=== PATIENT | female | born 1945 | race Caucasian/White ===

== ENCOUNTER 2018-10-16 18:00 | Inpatient (IN) | payer MEDICARE ==
--- NOTE | 2018-10-16 18:50 | RAD ---
EXAM: Chest one view: HISTORY: Clostridium infection, diarrhea, cough COMPARISON: 04/15/2015 FINDINGS: Heart size: Within normal limits. The lungs: Interstitial and scattered alveolar nodular parenchymal changes throughout the right lung with evidence for right pleural effusion, this is certainly concerning for pneumonia. Stable chronic changes in the left chest. Bilateral shoulder joint arthrosis. IMPRESSION: Patchy interstitial and alveolar parenchymal changes throughout the right lung with right pleural eff usion concerning for right lung pneumonia, new from prior study. Atherosclerosis of the aorta.
[2018-10-16 19:16] LABS: #Basophils 0.1 thou/uL (0.0-0.2); #Eosinphils 0.1 thou/uL (0.0-0.7); #Lymphocytes 0.6 thou/uL (1.20-3.40); #Monocytes 0.6 thou/uL (0.11-0.59); #Neutrophils 14.2 thou/uL (1.40-6.50); %Basophils 0.5 % (0.0-1.0); %Eosinophils 0.4 % (0.0-10.0); %Lymphocytes 3.7 % (21.0-51.0); %Monocytes 3.6 % (0.0-10.0); %Neutrophils 91.8 % (42.0-75.0); Hemoglobin 12.4 g/dL (12.0-16.0); Mean Corpuscular HGB CONC 33.9 g/dL (32.0-36.0); Mean Corpuscular Hemoglobin 30.4 pg (27.0-31.0); Mean Corpuscular Volume 89.8 fL (78.0-98.0); Mean Platelet Volume 7.9 fL (7.4-10.4); Platelet Count 245 thou/uL (130-400); RBC Distribution Width 15.5 % (11.5-14.5); Red Blood Cell (RBC) Count 4.07 mill/uL (4.20-5.40); White Blood Cell (WBC) Count 15.5 thou/uL (4.8-10.8)
[2018-10-16 19:39] LABS: ALT (SGPT) 26 U/L (8-55); AST (SGOT) 41 U/L (5-34); Albumin 2.8 g/dL (3.4-4.8); Alkaline Phosphatase 151 U/L (40-150); Anion Gap 16 mmol/L (10-20); BUN (Urea Nitrogen) 39 mg/dL (9.8-20.1); Bilirubin, Total 1.2 mg/dL (0.2-1.2); CK (CPK) 216 U/L (29-168); Calc. Creatinine Clearance 0 mL/min (70-130); Calcium 8.1 mg/dL (7.8-10.44); Carbon Dioxide 20 mmol/L (23-31); Chloride 90 mmol/L (98-107); Estimated GFR-MDRD 25; Globulin 3.2 g/dL (2.4-3.5); Glucose 79 mg/dL (83-110); Lipase 29 U/L (8-78); Sodium 123 mmol/L (136-145)
[2018-10-16] MEDS ORDERED: cefTRIAXone\\ROCEPHIN 2 GM VIAL ONE (20:03)
[2018-10-16] MEDS ORDERED: Potassium Chloride 20 MEQ TAB ONE (20:54)
[2018-10-16] MEDS ORDERED: Azithromycin 500 MG VIAL ONE (21:18)
[2018-10-16] MEDS ORDERED: Nitroglycerin 0.4 MG TAB (25 Tab Bottle) SL PRN (22:23)
[2018-10-16] MEDS ORDERED: Sodium Chloride 0.65% Nasal 44 ML BOT EA NARE PRN (22:23)
[2018-10-16] MEDS ORDERED: Diabetic Tussin 200 MG/10 ML UDCUP PO PRN (22:23)
[2018-10-16] MEDS ORDERED: Guaifenesin DM 100-10/5 ML UDCUP PO PRN (22:23)
[2018-10-16] MEDS ORDERED: Benzonatate 100 MG CAP PO PRN (22:23)
[2018-10-16] MEDS ORDERED: Senokot S 8.6-50 MG TAB PO PRN ×2 (22:23)
[2018-10-16] MEDS ORDERED: Bisacodyl 5 MG TAB PO PRN ×2 (22:23)
[2018-10-16] MEDS ORDERED: cloNIDine 0.1 MG TAB PO PRN (22:23)
[2018-10-16] MEDS ORDERED: Acetaminophen 325 MG TAB PO PRN (22:23)
[2018-10-16] MEDS ORDERED: Bisacodyl 10 MG SUPP PR PRN (22:23)
[2018-10-16] MEDS ORDERED: hydrALAZINE 20 MG/ML VIAL SLOW IVP PRN (22:23)
[2018-10-16] MEDS ORDERED: Ondansetron PF 4 MG/2 ML Vial IVP PRN (22:23)
[2018-10-16] MEDS ORDERED: Sodium Chloride 0.9% 1,000 ML IV SCH (22:30)
[2018-10-16 23:03] VITALS: BMI 25.9
[2018-10-16] MEDS ORDERED: Lactated Ringer's 1,000 ML IV SCH (23:15)
[2018-10-17] MEDS ORDERED: Mirtazapine 15 MG Soltab PO SCH (00:15)
[2018-10-17] MEDS ORDERED: rOPINIRole HCl 0.5 MG TAB PO SCH (00:15)
[2018-10-17 00:28] LABS: Lactic Acid 2.7 mmol/L (0.5-2.2)
[2018-10-17] MEDS: NS 0.9% w/ 20 MEQ KCL 1,000 ML/1,000 ML BAG IV SCH ×2 (01:00→06:29)
--- NOTE | 2018-10-17 01:06 | HP ---
PRIMARY CARE PHYSICIAN: Dr. Jerry Pruitt. CHIEF COMPLAINT: Abnormal labs. HISTORY OF PRESENTING ILLNESS: Ms. Yu is a very pleasant 73-year-old female with past medical history of extensive breast carcinoma first on the right side and then on the left side, status post surgery as well as history of arthritis, dyslipidemia, depression, hypertension, who presented to the emergency room with above-mentioned complaint. History is mainly obtained by the patient herself and supplemented by her daughter, Ms. Espinosa, present at the bedside. Electronic medical records have been reviewed. According to Ms. Yu, she has been having intractable nausea and vomiting for the last 2 months. She has been seen by primary care physician multiple times and eventually was referred to Gastroenterology, Dr. Gonzalez. Dr. Gonzalez has seen her, and she was found to have H pylori in the stool, which was treated. Despite that, she continued to have symptoms of projectile vomiting multiple times a day along with loose stools and diarrhea. She underwent EGD and colonoscopy recently as an outpatient and reportedly everything was within normal limit including the biopsy. She had a small polyp that was removed. She however continued to have similar symptoms after the endoscopies. Yesterday, she was seen by her oncologist Dr. Herrera for her yearly followup and because of her persistent symptoms, there were concerns of either new carcinoma or recurrent metastasis. A CEA was checked and was found to be elevated. Today, she was seen by primary care physician and her serum chemistries were checked and she was found to have low sodium, low potassium, and elevated creatinine, so she was told to come to the emergency room. Prior to coming to the emergency room while she was getting in the car: She fell and bumped her knee and head and forehead. In the emergency room, her blood work showed leukocytosis with WBCs of 15.5 with 91% neutrophils. Her sodium is low at 123, which was 127 yesterday and 140 in August. Potassium is 3.0, chloride 90, bicarb 20, BUN 39, and creatinine of 1.98 with baseline creatinine being normal. Her creatinine was 2.2 yesterday. Lactic acid was also elevated to 2.3. Her AST is 41. Alkaline phosphatase elevated to 151 with normal total bilirubin and ALT. Creatine kinase is mildly elevated to 216. Her troponin is normal. BNP slightly elevated to 245. Lipase was also normal. Chest x-ray was done in the emergency room, which showed extensive right-sided patchy interstitial and alveolar parenchymal changes suggestive of pneumonia. She was given azithromycin and Rocephin in the emergency room and is now being admitted for hyponatremia, acute renal failure, and right-sided pneumonia. PAST MEDICAL HISTORY: 1. History of breast cancer. She initially had left breast cancer and underwent lumpectomy with axillary lymph node dissection radiation in 2000. 2. Right-sided breast cancer, status post right modified radical mastectomy in 2006 in [place]. 3. Chronic right arm lymphedema. 4. Arthritis. 5. Dyslipidemia. 6. Depression. 7. Hypertension. 8. Osteoporosis. 9. Chronic back and neck pain. PAST SURGICAL HISTORY: 1. Hysterectomy in 1997. 2. Back surgery in 1993 and 2000. 3. Cervical laminectomy in 2010. 4. Breast cancer surgery x2, 2000 and 2006. 5. Left mastectomy and revision of right mastectomy in 2008. 6. Carpal tunnel surgery. 7. Bilateral MediPort placement and removal. 8. Right ankle surgery. 9. Right total hip replacement in 2012. CODE STATUS: Full code as discussed with the patient in presence of her daughter. ALLERGIES: INCLUDE IODINATED CONTRAST AND SULFONAMIDES. HOME MEDICATIONS: 1. Flovent Diskus b.i.d. 2. Azelastine b.i.d. 3. Latanoprost eye drops. 4. Symbicort 80/4.5 b.i.d. two puffs. 5. Remeron 15 mg at bedtime. 6. Albuterol inhaler as needed. 7. Pravastatin 20 mg daily. 8. Fluoxetine 20 mg daily. 9. Celebrex 200 mg daily. 10. Gabapentin 300 mg p.o. b.i.d. 11. Xanax 0.45 mg daily. 12. Ropinirole 0.5 mg at bedtime. 13. Lasix 20 mg p.o. b.i.d. 14. Metoprolol succinate 25 mg daily. SOCIAL HISTORY: No history of drug, tobacco, or alcohol abuse. She is with three children. FAMILY HISTORY: No significant family history of colon cancer. No family history of any significant coronary artery disease either. REVIEW OF SYSTEMS: A 14-point review of system is done. It is negative except for those mentioned in the history and physical. LABORATORY DATA: CBC shows WBCs 15.5 with 91% neutrophils, hemoglobin 12.4, and platelet count 245. Serum chemistry shows sodium 123, potassium 3.0, chloride 90, bicarb 20, BUN 39, creatinine 1.98, blood sugar 79, lactic acid 2.3, AST 41, alkaline phosphatase 151, and creatine kinase 216. Troponin 0.013. BNP 245. Lipase 29. Chest x-ray by my review shows extensive right-sided patchy opacities are consistent with right-sided pneumonia. No obvious mass is seen. EKG by my review shows normal ST-segments and T-waves. Normal sinus rhythm at 96 beats per minute. PHYSICAL EXAMINATION: VITAL SIGNS: Most recent vital signs temperature 98.3, pulse of 89, respirations 16, saturating 97% on 2 L nasal cannula, and blood pressure 94/56. GENERAL: No acute distress. Awake, alert, and oriented x3. Daughter is at bedside. HEENT: Mucous membrane is slightly dry. No oropharyngeal exudate or erythema. Head is normocephalic and atraumatic. Pupils are equal and reactive to light and accommodation. Extraocular movement intact. NECK: Supple without any lymphadenopathy, JVD, or bruit. CHEST: Clear to auscultation without any wheezing, rales, or rhonchi. HEART: Rhythm is regular without any murmurs, rubs, or gallops. ABDOMEN: Soft, nontender, nondistended with positive bowel sounds. EXTREMITIES: Show lymphedema of the right arm extending all the way from the fingers up to her shoulders. Both lower extremities are free of any edema. SKIN: Free of any rashes or bruises. Feel warm and dry to touch. PSYCHIATRIC: Normal affect. NEUROLOGICAL: Nonfocal. IMPRESSION AND PLAN: 1. Hyponatremia. The patient is hypochloremic and hypotensive with acute renal insufficiency. Most likely her symptoms are secondary to extreme dehydration with months of intractable nausea, vomiting, and diarrhea. She will be fluid resuscitated for now with normal saline with potassium. I have discussed the case with on-call gravity prospecting operator helper, Dr. Mendosa, who will be consulting on the patient as well. We will order urinalysis as well as urine and serum osmolality and urine creatinine. Recheck sodium and follow closely. Avoid quick correction. We will correct no more than at the rate of 10 mEq in 24 hours. Other possibility at this time is SIADH secondary to extensive pneumonia or possibly underlying undiagnosed malignancy. We will check TSH as well. 2. Acute renal insufficiency. Once again, most likely prerenal due to extreme dehydration and Lasix. We will hold the Lasix for now and avoid any nephrotoxic medications. Continue to gently rehydrate and monitor renal function on a daily basis. 3. Hypokalemia. We will replace and recheck. 4. Sepsis. The patient is hypotensive with leukocytosis and pneumonia. Likely source is pneumonia. Blood cultures have been obtained, and we will follow the results. Empiric antibiotic, IV fluids, and supportive care started. 5. Right-sided pneumonia, likely community-acquired pneumonia due to gram-positive. We will start her on empiric antibiotics as well as nebulizers scheduled and p.r.n. and supportive care with oxygen, incentive spirometry, Mucinex, Et cetera. We will restart her Flovent and Symbicort in the hospital. The patient has received nebulizers and antibiotics in the emergency room and is already feeling much better. She is in no respiratory distress. 6. Hypotension. This likely secondary to ongoing infection. We will resuscitate her with IV fluids and use antihypertensives with parameters. 7. Intractable nausea, vomiting, and diarrhea. We will send for C diff. The patient reports status post treatment with H pylori. We will also obtain ultrasound of the abdomen for now. The patient will require pretreatment for a CT scan once her renal function improve. She has iodine allergy. If her symptoms do not improve, consider gastroenterology consult. Once again, the possibility of an underlying malignancy is high. I have reviewed her lab done as an outpatient and her CEA was elevated to 49.70 and her LDH was elevated to 419. She is scheduled to get a CT scan as an outpatient in the next few days, but we will hold off until her renal function improves. We will consider oncology consultation if her symptoms do not improve. 8. Elevated BNP. Unclear significance of this. The patient does not appear to be in any congestive heart failure. She does have small amount of edema in her foot and was on Lasix twice a day. I do not see any cardiac workup for her done in the past. We will obtain a transthoracic echocardiogram. No evidence to suggest ACS at this time. Normal cardiac enzymes and normal EKG for same. 9. Lactic acidosis, most likely secondary to pneumonia. Once again, rehydration, IV antibiotic, and supportive care has been instituted. 10. History of breast cancer, status post surgery and radiation. 11. Chronic lymphedema. The patient follows up with lymphedema clinic in the outpatient setting. 12. Deep vein thrombosis and gastrointestinal prophylaxis. We will use heparin in place of Lovenox because of acute renal insufficiency. 13. Code status. Full code discussed with the patient. 14. Fall. We will have OT/PT to evaluate the patient. She will benefit from home health upon discharge. 15. Add p.r.n. medications and symptomatic and supportive care. DISPOSITION: Ms. Yu is currently being admitted to the hospital with multitude of problems including sepsis, pneumonia, hypotension, which is improving as well as with the multiple electrolyte abnormalities as above. ESTIMATED LENGTH OF STAY: At this time is at least 2 to 3 midnights. Further management will depend upon her clinical course. Level of complexity high, level of decision-making high, and level of risk high. TIME SPENT: Total time spent in taking care of this patient including [id number] interaction 45 minutes. Job ID: [id number]
[2018-10-17 05:55] LABS: #Eosinphils 0.1 thou/uL (0.0-0.7); #Lymphocytes 1.1 thou/uL (1.20-3.40); #Monocytes 0.6 thou/uL (0.11-0.59); #Neutrophils 9.1 thou/uL (1.40-6.50); %Eosinophils 1.1 % (0.0-10.0); %Lymphocytes 10.5 % (21.0-51.0); %Monocytes 5.2 % (0.0-10.0); %Neutrophils 83.2 % (42.0-75.0); Hemoglobin 10.2 g/dL (12.0-16.0); Mean Corpuscular HGB CONC 34.1 g/dL (32.0-36.0); Mean Corpuscular Volume 90.9 fL (78.0-98.0); Mean Platelet Volume 7.8 fL (7.4-10.4); Platelet Count 204 thou/uL (130-400); RBC Distribution Width 15.5 % (11.5-14.5); White Blood Cell (WBC) Count 10.9 thou/uL (4.8-10.8)
[2018-10-17 06:07] LABS: Anion Gap 9 mmol/L (10-20); BUN (Urea Nitrogen) 28 mg/dL (9.8-20.1); Calc. Creatinine Clearance 44 mL/min (70-130); Calcium 5.9 mg/dL (7.8-10.44); Carbon Dioxide 17 mmol/L (23-31); Chloride 109 mmol/L (98-107); Estimated GFR-MDRD 46; Glucose 73 mg/dL (83-110); Potassium 2.6 mmol/L (3.5-5.1); Sodium 132 mmol/L (136-145)
[2018-10-17] MEDS ORDERED: Potassium Chloride 20 MEQ TAB PO SCH ×2 (07:00→11:00)
[2018-10-17] MEDS: Mometasone/Formoterol 120 PUFF INHALER INH SCH ×2 (07:14→18:06)
[2018-10-17] MEDS ORDERED: Calcium Chloride 13.6 MEQ in Sodium Chloride 0.9% 100 ML IVPB SCH (07:15)
--- NOTE | 2018-10-17 07:59 | ULT ---
COMPLETE ABDOMEN ULTRASOUND: Date: 10/17/18 INDICATION: Intractable nausea, vomiting, and diarrhea. COMPARISON: Prior right upper quadrant ultrasound dated 04/09/14. FINDINGS: Visualized aorta and IVC are within normal limits. There is a moderate sized right-sided pleural effu therese noted. No focal hepatic lesion is evident. The spleen is normal appearing, measuring 8.4 cm. No abnormality is evident involving the gallbladder. No sonographic Hirsch's sign is reported. Common bile duct measured 3.7 mm. Visualized pancreas is unremarkable appearing. Right kidney measures 9.5 x 3.3 x 3.9 cm. Left kidney measures 10.1 x 4.6 x 4.4 cm. There is mild rig ht and moderate left hydronephrosis. IMPRESSION: 1. Interval development of bilateral hydronephrosis. CT evaluation of the abdomen and pelvis is zhao mmended for additional characterization. This could be performed without contrast initially. 2. Right-sided pleural effusion. 3. No additional acute sonographic abnormality within the abdomen. POS: BH
[2018-10-17 08:32] LABS: Bilirubin Negative (Negative); Blood, Urine Trace (Negative); Clarity CLEAR (Clear); Glucose, Urine (Dipstick) Negative (Negative); Leukocyte Small (Negative); Nitrite Negative (Negative); Protein, Urine (Dipstick) Negative (Neg-Trace); Specific Gravity, Urine 1.007 (1.002-1.036); Urobilinogen 0.2 mg/dL (0.2-1.0); pH, Urine 5.5 (5.0-9.0)
[2018-10-17 08:36] LABS: Bacteria/HPF None Seen HPF (None Seen); Hyaline Casts/LPF 0-3 HYALINE CAST LPF (0-3 Hyaline); Pathc Cast-AUWi Flag 0.13 (0-2.49); Squamous Epithelial 0-3 HPF (0-3); Yeast-AUWi Flag 22.9 (0-25.0)
[2018-10-17 08:52] LABS: Creatinine, Urine 35.57 mg/dL (47-110); Sodium, Urine Less than 20 mmol/L (Not Available)
[2018-10-17] MEDS ORDERED: ALPRAZolam 0.5 MG TAB PO SCH (09:00)
[2018-10-17] MEDS ORDERED: Enoxaparin Sodium 40 MG/0.4 ML SYRINGE SC SCH (09:00)
[2018-10-17] MEDS ORDERED: CeleCOXIB 100 MG CAP PO SCH (09:00)
[2018-10-17] MEDS ORDERED: Magnesium 2 GM/50 ML 2 GM in Premix Bag 1 BAG IVPB SCH (09:15)
[2018-10-17] MEDS: Azelastine 137 MCG/Spray 30 ML NS SCH ×2 (09:30→20:43)
[2018-10-17] MEDS: Famotidine 20 MG TAB PO SCH (09:31)
[2018-10-17] MEDS: guaiFENesin ER 600 MG TAB PO SCH ×2 (09:31→20:46)
[2018-10-17] MEDS: Gabapentin 300 MG CAP PO SCH ×2 (09:31→20:47)
[2018-10-17] MEDS: Fluticasone Propionate Nasal Spray 16 gm Bottle NASAL SCH ×2 (09:31→20:44)
[2018-10-17] MEDS: FLUoxetine HCl 20 MG CAP PO SCH (09:31)
[2018-10-17] MEDS: Heparin 5,000 UNITS/ML VIAL SC SCH ×2 (09:32→20:46)
--- NOTE | 2018-10-17 11:00 | CT ---
EXAM: CT Abdomen Pelvis WO Con PROVIDED CLINICAL HISTORY: Sepsis, or hydronephrosis. History of prior mastectomy and hysterectomy COMPARISON: Abdominal ultrasound 10/17/2018 FINDINGS: Moderate-sized right pleural effusion and atelectasis is present. There are groundglass densities par tially imaged at the right lung base which could be related to infectious process. Correlation for pneumonitis is recommended. Mild atelectasis is present at the left lung base. There is limited evaluation of the parenchymal organs secondary to the lack of intravenous contrast. There is mild pelvocaliectasis on the left. No hydronephrosis is present. There was suggestion of mil d right hydronephrosis on recent ultrasound examination, but no findings to suggest hydronephrosis on the right are seen on this nonenhanced CT exam. Ureters are not well seen due to multiple adjacent unopacified structures, but no definitive calculus is seen along the expected course of either ureter. Lack of intravenous contrast limits sensitivity for evaluation of the parenchymal organs. However, th e liver, spleen, pancreas, and bilateral adrenal glands demonstrate grossly normal nonenhanced CT appearance. There is streak artifact in the pelvis from right total hip prosthesis limiting evaluation urinary bl adder, but the distended urinary bladder has a grossly normal nonenhanced CT appearance. There is evidence of hysterectomy. The stomach is distended with fluid and particulate matter as well as gas. Loops of small bowel appea r normal in caliber. Vascular calcifications are seen in the abdominal aorta and involving the iliac arteries. Postsurgical changes of the lumbar spine are noted related to posterior fusion with intervertebral di sc cages seen in the L3-4 and intervertebral disc space. Multilevel degenerative changes are seen in the spine. Irregularity of the iliac bones are seen bilaterally which may be related to prior bone harvest sites. Small amount of free fluid is seen in the pelvis. There is minimal diffuse mesenteric edema in additi on to mild bilateral perinephric stranding slightly greater on the left which is nonspecific as well. There is indistinctness seen near the aortic bifurcation with mild adjacent stranding. This is overall nonspecific and not well evaluated due to the lack of intravenous contrast. Mildly prominent lymph node in this region cannot be entirely excluded. IMPRESSION: 1. Mild pelvocaliectasis on the left without overt hydronephrosis. No hydronephrosis is seen on the r ight. Ureters are normal in caliber. Each ureter is difficult to visualize due to multiple unopacified structures, but no definitive calculus is is seen along the expected course of either ure ter. 2. Distention of the stomach with fluid and particulate matter which may be related to recent ingesti on of a meal. Clinical correlation is suggested. 3. Moderate-sized right pleural effusion. In addition, there are groundglass densities at the right l vaishnavi base which are incompletely imaged. Infectious process right lung base cannot be entirely excluded. Follow-up evaluation is recommended. 4. Indistinctness in the aortocaval region inferiorly some of which is likely related to artifact fro m adjacent metallic hardware in the spine. There is also mild stranding in this region. Mildly enlarged lymph nodes seen near the aortic bifurcation is a possibility but difficult to further evalu ate. 5. Minimal nonspecific stranding within the mesentery as well as minimal bilateral perinephric strand ing slightly greater on the left which is nonspecific. Tiny amount of free fluid is seen in the pelvis.
--- NOTE | 2018-10-17 13:24 | PRG ---
DATE OF SERVICE: 10/17/2018 CHIEF COMPLAINT: Abnormal labs. Nausea, vomiting, and diarrhea. HISTORY OF PRESENT ILLNESS: A 73-year-old female with past medical history of breast cancer, on remission for 11 years; hypertension; hyperlipidemia; depression; right upper extremity chronic lymphedema, who has been presenting chronic nausea, vomiting, decreased appetite for the past 2 months. She was sent by her primary care physician for electrolyte abnormalities. SUBJECTIVE: The patient was seen and evaluated at bedside. Her daughter is present. She refers being hungry. Per nurse, hypomagnesemia, hypokalemia, hypocalcemia. Improving sodium level. Lactic acid is still abnormal. REVIEW OF SYSTEMS: All systems are reviewed and negative except for the one as mentioned above. PHYSICAL EXAMINATION: VITAL SIGNS: Blood pressure 100/59, pulse 78, respirations 16, oxygen saturation 96% on 2L of oxygen via nasal cannula, and temperature 98.3 Fahrenheit. GENERAL: She appears in no distress. She is awake, alert, oriented x3. HEAD AND NECK: Pupils are reactive to light. Extraocular muscles are intact. Mucous membranes are moist. NECK: Supple. CARDIOVASCULAR: Rhythm and rate are regular. No audible murmurs, rubs, or gallops. PULMONARY: Clear to auscultation bilaterally. No wheezes, rhonchi, or crackles. ABDOMEN: Soft, nontender, and nondistended. Positive bowel sounds. EXTREMITIES: Trace edema of the bilateral ankles. Range of motion is intact. Right upper extremity chronic lymphedema. SKIN: Generalized pallor. No breakdowns. NEUROLOGIC: Cranial nerves 2 through 12 are grossly intact. Deep tendon reflexes are normal reflex. Muscle tone is normal. Muscle strength is 5/5. LABORATORY DATA: Laboratory abnormalities; white blood cell count is 10.9, better from yesterday; hemoglobin is 10.2, hematocrit 30, neutrophils are 83%. Sodium is 132, potassium 2.6, chloride 109, bicarbonate 17, BUN 28, creatinine 1.15, and calcium 5.9. Magnesium 1. C diff negative. Blood cultures negative to date. Imaging study reports are reviewed. ASSESSMENT AND PLAN: 1. Acute hyponatremia: Improving. Continue current IV fluids. 2. Acute hypokalemia: Replaced this morning. Check in the morning. 3. Acute hypocalcemia: Corrected this morning. We will check in the morning. 4. Acute hypomagnesemia: Replaced this morning. We will check in the morning. 5. Acute kidney injury: Prerenal secondary to dehydration. Improving. Continue IV fluids. Nephrology has been consulted. 6. Sepsis secondary to right community-acquired pneumonia: Sepsis resolved. Continue treatment for pneumonia with Rocephin. 7. Right community-acquired pneumonia: Continue treatment as above. 8. Transient hypotension: Resolved. Monitor closely. 9. Acute lactic acidosis: Secondary to sepsis. We will repeat lactic acid in the morning after volume resuscitation. 10. Intractable nausea and vomiting: Resolved. The patient is hungry. Antiemetics p.r.n. 11. Self-limited diarrhea: Suspect osmotic diarrhea. Clostridium difficile negative. Imodium p.r.n. 12. Status post mechanical fall: No significant trauma. PT and OT evaluation and treatment. 13. Nonspecific elevated BNP. 14. Breast cancer, on remission for 10 years. 15. Chronic dyslipidemia. 16. Chronic depression. 17. Chronic essential hypertension. 18. Chronic osteoporosis. CODE STATUS: Full code. CORE MEASURES: Heparin. DISPOSITION: Medical-surgical unit on telemetry. PROGNOSIS: Guarded. CLINICAL STATUS: Guarded. EXPECTED DISCHARGE: To be determined. TOTAL TIME SPENT: 40 minutes. Job ID: [id number]
--- NOTE | 2018-10-17 14:12 | CON ---
DATE OF CONSULTATION: HISTORY OF PRESENT ILLNESS: Ms. Yu is a 73-year-old white female with known history of breast cancer-right, in remission and admitted for an acute kidney injury. There was a concomitant hypokalemia and hyponatremia with this. Review of her history and lab suggested that the hyponatremia may be secondary to hypovolemic hyponatremia. She was empirically volume repleted with normal saline and with improvement of the renal function as well of the serum sodium. We are now following up this patient for an acute kidney injury. She was also advised to be admitted due to abnormal lab-elevated CEA and will have an extensive workup to be done by her etl lead. REVIEW OF SYSTEMS: Positive for cough. Positive for decreased p.o. intake. Positive for nausea. No diarrhea. No constipation. No productive cough. No headache. No diplopia. No sore throat. Denies any fever or chills. No abdominal pain. No melena. No hematochezia. No hematemesis. PAST MEDICAL HISTORY: 1. Bilateral breast cancer. 2. Elevated CEA. 3. Chronic right upper extremity lymphedema. 4. DJD. 5. Dyslipidemia. 6. Depression. 7. Hypertension. 8. Osteoporosis. 9. Chronic back and neck pain. 10. History of hyperlipidemia. 11. History of depression. 12. History of neuropathy. 13. History of COPD. PAST SURGICAL HISTORY: Status post hysterectomy, status post bilateral mastectomy, status post breast biopsies, status post cervical laminectomy, status post back surgery, status post right total hip replacement, status post right ankle surgery, status post MediPort placement, status post carpal tunnel surgery, status post upper and lower GI endoscopies. ALLERGIES: IODINATED CONTRAST AND SULFA. TRAUMA: None. IMMUNIZATION: Up to date. HOSPITALIZATIONS: Please see past medical history. HOME MEDICATIONS: Include; 1. Flovent Diskus b.i.d. 2. Latanoprost eye drops as directed. 3. Symbicort 80/4.5 one puff b.i.d. 4. Remeron 50 mg at bedtime. 5. DuoNeb p.r.n. 6. Pravastatin 20 mg at bedtime. 7. Fluoxetine 20 mg tablet once a day. 8. Celebrex 200 mg daily. 9. Gabapentin 300 mg p.o. b.i.d. 10. Lasix 20 mg p.o. b.i.d. 11. Metoprolol succinate 25 mg once a day. 12. The patient on empiric azithromycin at 250 mg daily. 13. Ceftriaxone 2 g IV daily. SOCIAL HISTORY: The patient is , 3 children. Lives in [place], but originally from [place]. 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 Education, high school. Denies any IV drugs. No smoking. Occasional alcohol. Active lifestyle. No IV drug abuse. FAMILY HISTORY: No family history of ESRD. PHYSICAL EXAMINATION: VITAL SIGNS: Blood pressure 117/66, heart rate 88, respiratory rate 16, temperature 96.2, and pulse ox 94%. GENERAL: The patient is awake, alert, comfortable, not in distress. SKIN: Adequate turgor. HEENT: She has pinkish conjunctivae. Anicteric sclerae. No neck mass. No carotid bruits. No JVD. CHEST: No deformities. LUNGS: Decreased breath sounds, right. Left clear. HEART: Normal sinus rhythm. No murmurs, no gallops, no rubs. ABDOMEN: Globular, soft, nontender. EXTREMITIES: Trace edema lower extremities. Positive for right upper extremity edema. NEUROLOGICAL: Awake and oriented to 3 spheres. Moving all extremities. No tremors. No asterixis. No ataxia. LABORATORY DATA: On October 17, 2018; white count 10.9, hemoglobin 10.2. Sodium 132, potassium 2.6, chloride 109, carbon dioxide 17, BUN 20, creatinine 1.15, calcium is 5.9. Serum osmolality 271, magnesium is 1.0. On October 16, 2018; sodium 123, potassium 3.0, chloride 90, carbon dioxide 20, BUN 39, creatinine 1.98. BNP 245. AST 41, ALT 26, albumin 2.8, TSH 1.4, cortisol 19. On October 15, 2018; uric acid was noted to be elevated. CEA antigen 49.7, elevated. CA 27/29 noted at 99, elevated. The uric acid is elevated at 13.9. Urine sodium is less than 20. Urine creatinine 35. Urinalysis shows rbc 4 to 6, wbc 7 to 10. On October 17, 2018, ultrasound of the abdomen shows right-sided pleural effusion. There is an incidental finding of a mild right and moderate left hydronephrosis, this was commented to be new. ASSESSMENT AND PLAN: 1. Acute kidney injury-consider hemodynamically-mediated renal dysfunction. Creatinine is actually much improved with volume repletion. 2. Left-sided hydronephrosis-we will do a CT scan imaging of the abdomen as per recommendation by Radiology or we can wait until tomorrow to see if the kidney function will further improve and proceed with a CT scan of the kidneys with and without contrast. 3. Hyponatremia, much improved-secondary to hypovolemic hyponatremia, improved with normal saline. 4. Hypokalemia. Continue potassium replacement. 5. Pneumonia based on the chest x-ray. Empiric IV antibiotics. Overall agree with current management. Job ID: [id number]
--- NOTE | 2018-10-17 16:43 | CON ---
DATE OF CONSULTATION: REASON FOR CONSULTATION: Hydronephrosis. PRIMARY CARE PHYSICIAN: Jerry Pruitt DO HISTORY OF PRESENT ILLNESS: Ms. Yu is a pleasant 73-year-old female, G3, P3 , with history of breast carcinoma, status post bilateral mastectomy, chemo-RT. The patient previously underwent surgery by Dr. Tiwari including MediPort. Her history reviewed, she is a good subjective historian. She has had intractable nausea and vomiting for few weeks. Was seen by GI, Dr. Gonzalez, underwent EGD, diagnosed with H pylori, which was treated. She does have previous history of C difficile. Her projectile vomiting has persisted with diarrhea and she was admitted for electrolyte abnormalities including hypokalemia, hypocalcemia, elevated lactic acid, and acute renal insufficiency. She has baseline mixed incontinence urge greater than stress. Denies history of recurrent UTI, gross hematuria, or recurrent urolithiasis. She denies history of gout. She has been hydrated. She has no flank pain, is resting comfortably. She appears to be on a regular diet, is passing gas. PAST MEDICAL HISTORY: Include; 1. History of breast cancer, initial left breast cancer, status post bilateral mastectomy, lymph node dissection in 2006. 2. History of chronic right upper extremity lymphedema. 3. Arthritis. 4. Dyslipidemia. 5. Depression. 6. Hypertension. 7. Osteoporosis. 8. Spinal stenosis. 9. Chronic neck and back pain. PAST SURGICAL HISTORY: 1. Status post hysterectomy in 1997. 2. Back surgery in 1993 and 2000. 3. Cervical laminectomy in 2010. 4. Breast surgery x2 in 2000 and 2006. 5. Left mastectomy. 6. Revision of right mastectomy in 2008. 7. Carpal tunnel surgery. 8. MediPort placement. 9. Right ankle surgery. 10. Right total hip replacement. CODE STATUS: Full. ALLERGIES: SHE IS ALLERGIC TO IODINE CONTRAST, SULFONAMIDES. CURRENT MEDICATIONS: Include; 1. Tylenol. 2. DuoNeb. 3. Xanax. 4. Azelastine. 5. Zithromax. 6. Tessalon. 7. Dulcolax. 8. Tums. 9. Rocephin. 10. Catapres. 11. Pepcid. 12. Prozac. 13. Neurontin. 14. Guaifenesin. 15. Heparin subcu for DVT prophylaxis. 16. Magnesium sulfate. 17. Metoprolol. 18. Remeron. 19. Dulera. 20. Nitrostat. 21. Zofran. 22. K-Dur. 23. She is on IV fluids at 175 mL an hour. 24. Requip. 25. Senokot. 26. Zocor. 27. Celebrex. 28. As she was admitted for acute kidney injury, I did discontinue her Celebrex. SOCIAL HISTORY: Denies tobacco abuse or alcohol. She is with 3 children. Retired, disabled. Ambulates with a rolling walker. FAMILY HISTORY: Positive for colon cancer. REVIEW OF SYSTEMS: Ten-point review of systems as above, otherwise noncontributory. PHYSICAL EXAMINATION: VITAL SIGNS: Her vital signs are stable. She is afebrile at 96, pulse 88, respiratory rate 16, and oxygen saturation 94%. I's and O's are not documented. GENERAL: The patient appears to be in no acute distress. HEENT: Unremarkable. HEART: Regular rate. LUNGS: Clear, somewhat decreased on the right side. ABDOMEN: Soft. No rigidity. No rebound. No distention. EXTREMITIES: Right upper extremity demonstrates chronic lymphedema, bilateral lower extremity pitting edema is appreciated. GENITOURINARY: demonstrates atrophic vaginitis. No significant prolapse. Urethral meatus is visualized without significant issues. PERTINENT LABORATORY AND IMAGING: White count on admission is 16, currently it is 10; hemoglobin 10; platelet 204; 91 segs, currently 83. Potassium today is 2.6 , BUN 28, creatinine 1.1 this morning. She was admitted with a creatinine of 2.2, however, with fluids and observation, it has improved almost near her baseline. Her baseline creatinine is 0.8 to 0.7. Prior history of INR is 4.3 back in 2012. Lactic acid 2.7. Uric acid is elevated at 13.9, calcium is 5.9. Urinalysis on admission, 4 to 6 rbc's, 7 to 10 wbc's, no bacteria. Culture has not been obtained. Blood culture negative. C difficile is negative. CT with and without IV contrast October 17, 2018: Mild pelvic caliectasis of the left kidney without overt hydronephrosis. Component of left extrarenal pelvis. No evidence of right hydronephrosis. Ureters are unremarkable with no evidence of ureteral calculi. Significant distention of the stomach with food. Moderate right pleural effusion. IMPRESSION AND PLAN: 1. Ms. Yu is a 73-year-old female, G3, P3 with history of bilateral breast cancer status post mastectomy. 2. Currently admitted due to right-sided pneumonia, has been treated with Zithromax, currently on Rocephin. 3. Acute renal insufficiency, prerenal due to decreased oral intake and significant nausea, vomiting, and diarrhea for the last few weeks. Recommend observation. Monitor BMP. 4. Elevated uric acid. The patient does not have a prior history of gout. Recommend treatment with allopurinol. 5. I do not recommend that the patient be provided nephrotoxins such as NSAIDs. Celebrex discontinued. NSAIDs could eventually be restarted, if it is okay with Nephrology and , and renal function remains stable. Job ID: [id number] MTDD
[2018-10-17] MEDS: cefTRIAXone\\ROCEPHIN 2 GM in Sodium Chloride 0.9% 100 ML IVPB SCH (20:14)
[2018-10-17] MEDS: Calcium Carbonate 500 MG ChewTAB PO SCH (20:42)
[2018-10-17] MEDS: ALPRAZolam 0.5 MG TAB PO SCH (20:43)
[2018-10-17] MEDS: Latanoprost 0.005% Ophth Soln 2.5 ml Bottle EA EYE SCH (20:44)
[2018-10-17] MEDS: Mirtazapine 15 MG Soltab PO SCH (20:45)
[2018-10-17] MEDS: rOPINIRole HCl 0.5 MG TAB PO SCH (20:46)
[2018-10-17] MEDS: Simvastatin 5 MG TAB PO SCH (20:46)
[2018-10-17] MEDS: Azithromycin 500 MG in Sodium Chloride 0.9% 250 ML 250 ML IVPB SCH (21:29)
[2018-10-18] MEDS: NS 0.9% w/ 20 MEQ KCL 1,000 ML/1,000 ML BAG IV SCH (02:33)
[2018-10-18 05:53] LABS: #Basophils 0.1 thou/uL (0.0-0.2); #Eosinphils 0.2 thou/uL (0.0-0.7); #Monocytes 0.5 thou/uL (0.11-0.59); #Neutrophils 7.7 thou/uL (1.40-6.50); %Basophils 0.6 % (0.0-1.0); %Lymphocytes 10.7 % (21.0-51.0); %Monocytes 5.1 % (0.0-10.0); %Neutrophils 81.6 % (42.0-75.0); Hemoglobin 10.6 g/dL (12.0-16.0); Mean Corpuscular HGB CONC 32.9 g/dL (32.0-36.0); Mean Corpuscular Hemoglobin 30.1 pg (27.0-31.0); Mean Corpuscular Volume 91.4 fL (78.0-98.0); Mean Platelet Volume 8.2 fL (7.4-10.4); Platelet Count 213 thou/uL (130-400); RBC Distribution Width 16.1 % (11.5-14.5); Red Blood Cell (RBC) Count 3.54 mill/uL (4.20-5.40); White Blood Cell (WBC) Count 9.5 thou/uL (4.8-10.8)
[2018-10-18 06:07] LABS: Lactic Acid 1.3 mmol/L (0.5-2.2)
[2018-10-18 06:18] LABS: Anion Gap 13 mmol/L (10-20); BUN (Urea Nitrogen) 26 mg/dL (9.8-20.1); Calc. Creatinine Clearance 47 mL/min (70-130); Calcium 8.2 mg/dL (7.8-10.44); Carbon Dioxide 16 mmol/L (23-31); Chloride 107 mmol/L (98-107); Estimated GFR-MDRD 48; Glucose 77 mg/dL (83-110); Magnesium 1.8 mg/dL (1.6-2.6); Potassium 5.1 mmol/L (3.5-5.1); Sodium 131 mmol/L (136-145)
[2018-10-18] MEDS: Mometasone/Formoterol 120 PUFF INHALER INH SCH (06:19)
[2018-10-18] MEDS: Fluticasone Propionate Nasal Spray 16 gm Bottle NASAL SCH ×2 (09:34→21:44)
[2018-10-18] MEDS: guaiFENesin ER 600 MG TAB PO SCH ×2 (09:35→21:42)
[2018-10-18] MEDS: Allopurinol 100 MG TAB PO SCH (09:35)
[2018-10-18] MEDS: Calcium Carbonate 500 MG ChewTAB PO SCH ×2 (09:35→21:42)
[2018-10-18] MEDS: Famotidine 20 MG TAB PO SCH (09:36)
[2018-10-18] MEDS: FLUoxetine HCl 20 MG CAP PO SCH (09:36)
[2018-10-18] MEDS: Gabapentin 300 MG CAP PO SCH ×2 (09:36→21:42)
[2018-10-18] MEDS: Heparin 5,000 UNITS/ML VIAL SC SCH ×2 (09:36→21:43)
[2018-10-18] MEDS: Azelastine 137 MCG/Spray 30 ML NS SCH ×2 (09:37→21:44)
--- NOTE | 2018-10-18 10:59 | PRG ---
DATE OF SERVICE: 10/18/2018 SUBJECTIVE: Ms. Yu is a 73-year-old white female, who was seen for her acute kidney injury that was hemodynamically-mediated renal dysfunction. She was given volume repletion with improvement of the renal function. Urine chemistry was suggestive of prerenal azotemia. In addition, due to initial renal ultrasound, there was hydronephrosis. However, a CAT scan of the abdomen failed to showed this hydronephrosis. No other complaints today. She feels tired. She denies any chest pain or shortness of breath. OBJECTIVE: VITAL SIGNS: Blood pressure 117/68, heart rate 97, respiratory rate 18, temperature 97.9, and pulse ox 97%. GENERAL: Awake, alert, comfortable, not in distress. SKIN: Adequate turgor. HEENT: Pinkish conjunctivae, anicteric sclerae. NECK: No neck mass. No carotid bruits. No JVD. CHEST: No deformities. LUNGS: Decreased breath sounds, right, left, clear breath sounds. HEART: Normal sinus rhythm. No murmurs, gallops, or rubs. ABDOMEN: Globular, soft, nontender. No masses. EXTREMITIES: No edema. No deformities of lower extremities. Positive for right upper extremity edema. MEDICATIONS: October 18, 2018, was reviewed. LABORATORY STUDIES: Laboratories of October 18, 2018, sodium 131, potassium 5.1, chloride 107, carbon dioxide 16, BUN 26, creatinine 1.11, glucose 77, calcium 8.2, magnesium 1.8. White count 9.5, hemoglobin 10.6. Cardiac echo, normal EF. Positive for diastolic dysfunction. CT scan of the abdomen and pelvis showed no hydronephrosis. There is extension of stoma with fluid particulate matter. In addition, there is a moderate sized right pleural effusion. There is a mild pelvocaliectasis on the left without overt hydronephrosis. ASSESSMENT AND PLAN: 1. Acute kidney injury-hemodynamically mediated renal dysfunction. Renal function is actually much improved. Continue gentle volume repletion. Continue to hold off any BRIGETTE inhibitors or ARB with this patient. 2. Hyponatremia, much improved. Initial serum sodium was noted at 123, it is now currently at 131. Continue current management. 3. Overall agree with current management. Job ID: [id number]
--- NOTE | 2018-10-18 12:40 | PRG ---
DATE OF SERVICE: 10/18/2018 SUBJECTIVE: The patient without complaints, doing well. Denies chest pain, shortness of breath, dysuria, or gross hematuria. OBJECTIVE: VITAL SIGNS: Stable. She is afebrile. ABDOMEN: Soft, nontender, and nondistended. Urine output 1410. LABORATORY DATA: Labs today; white count 9, creatinine 1.1. Urine culture negative. Creatinine is near her baseline. IMPRESSION AND PLAN: 1. Ms. Yu is a 73-year-old female with history of breast cancer, admitted for right-sided community-acquired pneumonia on Zithromax and Rocephin. 2. Acute renal insufficiency, prerenal due to history of decreased oral intake for a few months, significant diarrhea, nausea, chronic Celebrex use. Her renal function is stable. Renal ultrasound initially demonstrated bilateral hydronephrosis, mild right, moderate left. CT which I reviewed with the radiologist demonstrates no significant hydronephrosis of concern, component of extrarenal pelvis with minimal caliectasis. Recommend observation. I do recommend patient abstain from nephrotoxins such as Celebrex for few more weeks, unless it is approved by Nephrology. If she demonstrates consistent ability to hydrate, slowly reintroducing NSAIDs, would be okay if her renal function returns to baseline. will sign off. Call if any questions or concerns. No surgical intervention warranted. Can follow up with me in 4-6 weeks with recheck BMP. She may call my office after discharge to arrange elective follow-up appointment. Job ID: [id number] MTDD
--- NOTE | 2018-10-18 15:10 | PRG ---
DATE OF SERVICE: 10/18/2018 CHIEF COMPLAINT: Abnormal labs. Nausea, vomiting, and diarrhea. HISTORY OF PRESENT ILLNESS: This is a 73-year-old female with past medical history of breast cancer, on remission for 11 years, hypertension, hyperlipidemia, depression, right upper extremity chronic lymphedema, who came to the hospital referred from her primary care physician for abnormal labs after complaints of intermittent nausea, vomiting, and diarrhea. SUBJECTIVE: The patient seen and evaluated at bedside. No family member present. She refers feeling much better. She is requesting probiotics. Per nurse, no acute events overnight. REVIEW OF SYSTEMS: All systems are reviewed and negative except for the ones mentioned above. PHYSICAL EXAMINATION: VITAL SIGNS: Blood pressure 117/68, pulse is 99, respiration 18, O2 saturation 97% on 2 L of oxygen via nasal cannula, and temperature 97.4 Farenheit. GENERAL: She is in no distress. She is awake, alert, and oriented x3. HEAD AND NECK: Pupils are equal and reactive to light. Extraocular muscles are intact. Mucous membranes are moist. Neck is supple without bruits. CARDIOVASCULAR: Rhythm and rate regular. No audible murmurs, rubs, or gallops. PULMONARY: Clear to auscultation bilaterally. No wheezes, rhonchi, or crackles. ABDOMEN: Soft, nontender, nondistended. Positive bowel sounds. EXTREMITIES: Trace edema, bilateral ankles. Right upper extremity chronic lymphedema. Range of motion is intact. SKIN: Generalized pallor. No breakdowns. NEUROLOGIC: Cranial nerves 2 through 12 are grossly intact. Deep tendon reflexes are normoreflexic. LABORATORY DATA: Laboratory abnormalities; sodium 131, creatinine 1.11. Glucose is normal. White blood cell count in the normal range now. Hemoglobin 10.6, hematocrit 32.3. Microbiology with no growth. MEDICATIONS: Current medications are reviewed. ASSESSMENT AND PLAN: 1. Acute hyponatremia: Unchanged from yesterday. We will continue to monitor. Continue IV fluids. 2. Acute hypokalemia: Resolved. 3. Acute hypocalcemia: Resolved. 4. Acute hypomagnesemia: Resolved. 5. Acute kidney injury: Prerenal secondary to dehydration. Improving. 6. Sepsis secondary to right community-acquired pneumonia: Sepsis resolved. Continue current antibiotics. Monitor cultures. 7. Right community-acquired pneumonia: Continue current antibiotics. 8. Transient hypotension: Resolved. 9. Acute lactic acidosis: Resolved. 10. Intractable nausea and vomiting: Resolved. Advance as tolerated. 11. Osmotic diarrhea: Negative C. diff. Resolved. 12. Status post mechanical fall: Continue PT, OT evaluation and treatment. 13. Nonspecific elevated BNP. 14. Breast cancer on remission for 10 years. 15. Chronic dyslipidemia. 16. Current depression. 17. Chronic essential hypertension. 18. Chronic osteoporosis. 19. Code status: Full code. 20. Core measure: Heparin. 21. Disposition: Medical-Surgical Unit on telemetry. 22. Prognosis: Guarded. 23. Clinical status: Guarded. 24. Expected discharge: To be determined. Possibly in the next 48 to 72 hours. TOTAL TIME SPENT: 32 minutes. Job ID: [id number]
[2018-10-18] MEDS: Azithromycin 500 MG in Sodium Chloride 0.9% 250 ML 250 ML IVPB SCH (21:30)
[2018-10-18] MEDS: Mirtazapine 15 MG Soltab PO SCH (21:42)
[2018-10-18] MEDS: Simvastatin 5 MG TAB PO SCH (21:42)
[2018-10-18] MEDS: cefTRIAXone\\ROCEPHIN 2 GM in Sodium Chloride 0.9% 100 ML IVPB SCH (21:43)
[2018-10-18] MEDS: ALPRAZolam 0.5 MG TAB PO SCH (21:43)
[2018-10-18] MEDS: rOPINIRole HCl 0.5 MG TAB PO SCH (21:48)
[2018-10-18] MEDS: Latanoprost 0.005% Ophth Soln 2.5 ml Bottle EA EYE SCH (21:48)
[2018-10-19 05:20] LABS: #Eosinphils 0.2 thou/uL (0.0-0.7); #Lymphocytes 1.4 thou/uL (1.20-3.40); #Monocytes 0.6 thou/uL (0.11-0.59); #Neutrophils 5.9 thou/uL (1.40-6.50); %Basophils 0.5 % (0.0-1.0); %Eosinophils 2.3 % (0.0-10.0); %Lymphocytes 16.8 % (21.0-51.0); %Monocytes 7.7 % (0.0-10.0); %Neutrophils 72.7 % (42.0-75.0); Hemoglobin 10.6 g/dL (12.0-16.0); Mean Corpuscular HGB CONC 33.7 g/dL (32.0-36.0); Mean Corpuscular Hemoglobin 31.2 pg (27.0-31.0); Mean Corpuscular Volume 92.6 fL (78.0-98.0); Mean Platelet Volume 7.5 fL (7.4-10.4); Platelet Count 237 thou/uL (130-400); RBC Distribution Width 16.2 % (11.5-14.5); Red Blood Cell (RBC) Count 3.38 mill/uL (4.20-5.40); White Blood Cell (WBC) Count 8.1 thou/uL (4.8-10.8)
[2018-10-19 05:33] LABS: Anion Gap 13 mmol/L (10-20); BUN (Urea Nitrogen) 19 mg/dL (9.8-20.1); Calc. Creatinine Clearance 60 mL/min (70-130); Calcium 8.5 mg/dL (7.8-10.44); Carbon Dioxide 17 mmol/L (23-31); Chloride 107 mmol/L (98-107); Estimated GFR-MDRD 62; Glucose 71 mg/dL (83-110); Potassium 5.1 mmol/L (3.5-5.1); Sodium 132 mmol/L (136-145)
[2018-10-19] MEDS: Mometasone/Formoterol 120 PUFF INHALER INH SCH ×2 (06:29→18:50)
[2018-10-19] MEDS: Fluticasone Propionate Nasal Spray 16 gm Bottle NASAL SCH ×2 (09:56→20:26)
[2018-10-19] MEDS: Lactinex Tablet PO SCH (09:57)
[2018-10-19] MEDS: Calcium Carbonate 500 MG ChewTAB PO SCH ×2 (09:57→20:06)
[2018-10-19] MEDS: Allopurinol 100 MG TAB PO SCH (09:57)
[2018-10-19] MEDS: Azelastine 137 MCG/Spray 30 ML NS SCH ×2 (09:57→20:27)
[2018-10-19] MEDS: guaiFENesin ER 600 MG TAB PO SCH ×2 (09:58→20:07)
[2018-10-19] MEDS: FLUoxetine HCl 20 MG CAP PO SCH (09:58)
[2018-10-19] MEDS: Gabapentin 300 MG CAP PO SCH ×2 (09:58→20:07)
[2018-10-19] MEDS: Famotidine 20 MG TAB PO SCH (09:58)
[2018-10-19] MEDS: Heparin 5,000 UNITS/ML VIAL SC SCH ×2 (09:58→20:07)
--- NOTE | 2018-10-19 12:48 | PRG ---
DATE OF SERVICE: 10/19/2018 SUBJECTIVE: Ms. Yu is a 73-year-old white female, who was initially seen for an acute kidney injury, that was prerenal, as well as for hyponatremia. The hyponatremia was felt secondary to hypovolemic hyponatremia. She has received volume repletion with improvement of the serum sodium and renal dysfunction. No new complaints today except for the persistent cough. She is also being treated with antibiotics. No complaints of chest pain or shortness of breath. OBJECTIVE: VITAL SIGNS: Blood pressure 123/71, heart rate 99, respiratory rate 18, temperature 99.2, and pulse ox 95%. GENERAL: Awake, alert, comfortable, not in overt distress. SKIN: Adequate turgor. HEENT: She has pinkish conjunctivae. Anicteric sclerae. NECK: No neck mass. No carotid bruits. No JVD. CHEST: No deformities. LUNGS: Decreased breath sounds. HEART: Normal sinus rhythm. No murmur, gallops, or rubs. ABDOMEN: Globular, soft, nontender. No masses. EXTREMITIES: Lower - no edema. Right upper extremity positive for edema. NEUROLOGIC: Moving all extremities. No tremors. No asterixis. No ataxia. MEDICATIONS: Medications of 10/19/2018 was reviewed. LABORATORY DATA: Laboratories of 10/19/2018: White count 8.1 and hemoglobin 10.6. Sodium 132, potassium 5.1, chloride 107, carbon dioxide 17, BUN 19, creatinine 0.89, glucose 71, and calcium 8.5. ASSESSMENT AND PLAN: 1. Acute kidney injury - hemodynamically-mediated renal dysfunction, much improved creatinine with volume repletion. 2. Hypomagnesemia/hypocalcemia - much improved. Continue current management. 3. Pneumonia, on empiric antibiotics. 4. Hyponatremia secondary to presumed hypovolemic hyponatremia. Continue current management. There is no indication for any tolvaptan or hypertonic saline. Due to the much improved electrolytes as well as renal function, we will be signing off. Please call if needed. Job ID: [id number]
[2018-10-19] MEDS: Loperamide HCl 2 MG CAP PO PRN ×2 (12:54→20:07)
--- NOTE | 2018-10-19 13:48 | PRG ---
DATE OF SERVICE: 10/19/2018 CHIEF COMPLAINT: Abnormal labs. Nausea, vomiting, and diarrhea. HISTORY OF PRESENT ILLNESS: A 73-year-old female with past medical history of breast cancer on remission for 11 years, hypertension, hyperlipidemia, depression, right upper extremity chronic lymphedema, who came to the hospital referred from her primary care physician for abnormal labs after complaints of intermittent nausea, vomiting, and diarrhea for weeks. SUBJECTIVE: The patient seen and evaluated at bedside. No family member present. She refers feeling much better, but having still watery stools. Per nurse, no other acute events overnight. REVIEW OF SYSTEMS: All systems are reviewed and negative except for the ones mentioned above. PHYSICAL EXAMINATION: VITAL SIGNS: Blood pressure 122/71, pulse 99, respiration 18, oxygen saturation 95% on 2 L of oxygen via nasal cannula, temperature 99.2 Fahrenheit. GENERAL: No distress. Awake, alert, and oriented x3. HEAD AND NECK: Pupils are equal, reactive to light. Extraocular muscles are intact. Mucous membranes are moist. NECK: Supple. CARDIOVASCULAR: Rhythm and rate are regular. No audible murmurs, rubs, or gallops. PULMONARY: Clear to auscultation bilaterally. No wheezes, rhonchi, or crackles. ABDOMEN: Soft, nontender, nondistended, positive bowel sounds. EXTREMITIES: Trace edema on bilateral ankles. Right upper extremity-chronic lymphedema. Range of motion is intact. SKIN: Generalized pallor. No breakdowns. NEUROLOGIC: Cranial nerves 2 through 12 are grossly intact. Deep tendon reflexes are normoreflexic. LABORATORY DATA: Sodium 132. Rest of the chemistry is normal. White blood cell count is normal, hemoglobin 10.6, hematocrit 31.3, and platelets are adequate. Cultures negative to date. C diff negative. CURRENT MEDICATIONS: Reviewed. ASSESSMENT AND PLAN: 1. Acute hyponatremia: Improving. Continue current treatment. 2. Acute hypokalemia: Resolved. 3. Acute hypocalcemia: Resolved. 4. Acute hypomagnesemia: Resolved. 5. Acute kidney injury: Prerenal. Resolved. 6. Sepsis secondary to right community-acquired pneumonia: Sepsis resolved. Continue current antibiotics. Cultures negative to date. Likely to switch to oral antibiotics tomorrow. 7. Transient hypotension: Resolved. 8. Acute lactic acidosis: Resolved. 9. Intractable nausea and vomiting: Resolved. 10. Osmotic diarrhea: C diff negative. Imodium. 11. Status post mechanical fall: Continue PT, OT evaluation and treatment. 12. Nonspecific elevated BNP. 13. Breast cancer on remission 14 years. 14. Chronic dyslipidemia. 15. Chronic depression. 16. Chronic essential hypertension. 17. Chronic osteoporosis. CODE STATUS: Full code. CORE MEASURE: Heparin. DISPOSITION: Medical surgical unit on telemetry. PROGNOSIS: Guarded. CLINICAL STATUS: Guarded. EXPECTED DISCHARGE: In the next 48 hours. TOTAL TIME SPENT: 31 minutes. Job ID: [id number]
[2018-10-19] MEDS: Simvastatin 5 MG TAB PO SCH (20:06)
[2018-10-19] MEDS: Sodium Bicarbonate Tab 325 MG TAB PO SCH (20:06)
[2018-10-19] MEDS: rOPINIRole HCl 0.5 MG TAB PO SCH (20:06)
[2018-10-19] MEDS: ALPRAZolam 0.5 MG TAB PO SCH (20:07)
[2018-10-19] MEDS: cefTRIAXone\\ROCEPHIN 2 GM in Sodium Chloride 0.9% 100 ML IVPB SCH (20:08)
[2018-10-19] MEDS: Latanoprost 0.005% Ophth Soln 2.5 ml Bottle EA EYE SCH (20:27)
[2018-10-19] MEDS: Azithromycin 500 MG in Sodium Chloride 0.9% 250 ML 250 ML IVPB SCH (20:27)
[2018-10-19] MEDS: Mirtazapine 15 MG Soltab PO SCH (20:28)
[2018-10-20] MEDS: Mometasone/Formoterol 120 PUFF INHALER INH SCH (06:52)
[2018-10-20 07:18] LABS: Hemoglobin 10.6 g/dL (12.0-16.0); Mean Corpuscular HGB CONC 32.4 g/dL (32.0-36.0); Mean Corpuscular Hemoglobin 30.3 pg (27.0-31.0); Mean Corpuscular Volume 93.5 fL (78.0-98.0); Mean Platelet Volume 7.3 fL (7.4-10.4); Platelet Count 239 thou/uL (130-400); RBC Distribution Width 15.7 % (11.5-14.5)
[2018-10-20 07:29] LABS: Anion Gap 11 mmol/L (10-20); BUN (Urea Nitrogen) 14 mg/dL (9.8-20.1); Calc. Creatinine Clearance 62 mL/min (70-130); Calcium 8.5 mg/dL (7.8-10.44); Carbon Dioxide 21 mmol/L (23-31); Chloride 107 mmol/L (98-107); Estimated GFR-MDRD 61; Glucose 68 mg/dL (83-110); Magnesium 1.6 mg/dL (1.6-2.6); Potassium 4.9 mmol/L (3.5-5.1); Sodium 134 mmol/L (136-145)
[2018-10-20] MEDS: Allopurinol 100 MG TAB PO SCH (08:20)
[2018-10-20] MEDS: FLUoxetine HCl 20 MG CAP PO SCH (08:21)
[2018-10-20] MEDS: Gabapentin 300 MG CAP PO SCH (08:21)
[2018-10-20] MEDS: Calcium Carbonate 500 MG ChewTAB PO SCH (08:21)
[2018-10-20] MEDS: Sodium Bicarbonate Tab 325 MG TAB PO SCH (08:21)
[2018-10-20] MEDS: guaiFENesin ER 600 MG TAB PO SCH (08:21)
[2018-10-20] MEDS: Famotidine 20 MG TAB PO SCH (08:22)
[2018-10-20] MEDS: Fluticasone Propionate Nasal Spray 16 gm Bottle NASAL SCH (08:22)
[2018-10-20] MEDS: Lactinex Tablet PO SCH (08:22)
[2018-10-20] MEDS: Azelastine 137 MCG/Spray 30 ML NS SCH (08:22)
[2018-10-20] MEDS: Heparin 5,000 UNITS/ML VIAL SC SCH (08:23)
[2018-10-20] MEDS: Loperamide HCl 2 MG CAP PO PRN (11:25)
[2018-10-20 11:48] VITALS: BP 141/64; TEMP 97.7
--- NOTE | 2018-10-20 13:24 | DIS ---
DATE OF ADMISSION: 10/16/2018 DATE OF DISCHARGE: 10/20/2018 ADMITTING PHYSICIAN: Krystyna Mao MD DISCHARGING PHYSICIAN: Iglesia Arias MD PRIMARY CARE PHYSICIAN: Jerry Pruitt DO ADMITTING DIAGNOSES: 1. Hyponatremia. 2. Acute renal insufficiency. 3. Hypokalemia. 4. Sepsis. 5. Right-sided pneumonia. 6. Hypotension. 7. Intractable nausea, vomiting, and diarrhea. 8. Elevated BNP. 9. Lactic acidosis. 10. History of breast cancer. 11. Chronic lymphedema. DISCHARGE DIAGNOSES: 1. Acute hyponatremia: Resolved. 2. Acute hypokalemia: Resolved. 3. Acute hypocalcemia: Resolved. 4. Acute hypomagnesemia: Resolved. 5. Acute kidney injury (prerenal): Resolved. 6. Sepsis, resolved. 7. Community-acquired pneumonia: The patient to complete 10 more days of oral Levaquin. 8. Transient hypotension: Resolved. 9. Acute lactic acidosis: Resolved. 10. Intractable nausea and vomiting: Resolved. 11. Osmotic diarrhea: Clostridium difficile negative. Resolved. 12. Status post mechanical fall. 13. Nonspecific elevated BNP. 14. History of right breast cancer, on remission for 11 years. 15. Chronic dyslipidemia. 16. Chronic depression. 17. Chronic essential hypertension. 18. Chronic osteoporosis. CONSULTS: Nephrology. PROCEDURES: None. SPECIAL IMAGING: Echocardiogram, CT of the abdomen and pelvis. HOSPITAL COURSE: This is a 73-year-old female with past medical history of breast cancer on remission for 11 years, hypertension, hyperlipidemia, depression, right upper extremity chronic lymphedema, who came to the hospital referred from her primary care physician for abnormal labs after complaints of intermittent nausea, vomiting and diarrhea for weeks. She was admitted with diagnoses as above. She received broad-spectrum antibiotics. Cultures were obtained before first of some antibiotics and did not grow during the entire hospitalization. Electrolyte abnormalities resolved. Sepsis resolved. Now, the patient is stable for discharge and will be discharged home with home health services. PHYSICAL EXAMINATION: VITAL SIGNS: Blood pressure 113/66, pulse is 80, respirations 18, oxygen saturation 95%, and temperature 96.7 Fahrenheit. GENERAL: She appears in no distress. Appears awake, alert, oriented x3. HEAD AND NECK: Pupils are reactive to light. Extraocular muscles are intact. Mucous membranes are moist. Neck is supple. CARDIOVASCULAR: Rhythm and rate are regular. No audible murmurs, rubs, or gallops. PULMONARY: Clear to auscultation bilaterally. No wheezes, rhonchi, or crackles. ABDOMEN: Soft, nontender, and nondistended. Positive bowel sounds. EXTREMITIES: Trace edema of bilateral ankles. Right upper extremity chronic lymphedema. Range of motion is intact. SKIN: Generalized pallor. No breakdowns. NEUROLOGIC: Cranial nerves 2 through 12 are grossly intact. Deep tendon reflexes are normoreflexic. LABORATORY ABNORMALITIES: White blood cell count is in the normal range. Hemoglobin 10.6, hematocrit 33. Sodium 134, bicarbonate 21. Urine cultures, C diff, and blood cultures negative. DISCHARGE DISPOSITION: Home with Home Health. DISCHARGE CONDITION: Fair. DISCHARGE DIET: Low-sodium diet as tolerated. DISCHARGE ACTIVITY: Increase activity as tolerated and avoid falls. DISCHARGE MEDICATIONS: See medical reconciliation for details. DISCHARGE FOLLOWUP: Follow up with primary care physician within 1 week. DISCHARGE INSTRUCTIONS: The patient was instructed to return to the emergency department if symptoms are worsen. Take her medications as directed and not to miss any appointments. TIME OF DISCHARGE PLANNIN minutes. Job ID: [id number]
== END 2018-10-20 14:08 | disposition home health service (06) | DRG 871 ==
LOC: ERS 18:00 → 2NO 22:39
PROVIDERS: ADMIT Internal Medicine; ATTEND Internal Medicine
DX: A41.9 Sepsis, unspecified organism (principal); J18.9 Pneumonia, unspecified organism; E87.1 Hypo-osmolality and hyponatremia; N17.9 Acute kidney failure, unspecified; J44.0 Chronic obstructive pulmonary disease with (acute) lower respiratory infection; I10 Essential (primary) hypertension; E78.00 Pure hypercholesterolemia, unspecified; K21.9 Gastro-esophageal reflux disease without esophagitis; G25.81 Restless legs syndrome; F32.9 Major depressive disorder, single episode, unspecified; M19.90 Unspecified osteoarthritis, unspecified site; M81.0 Age-related osteoporosis without current pathological fracture; E86.0 Dehydration; E87.6 Hypokalemia; G62.9 Polyneuropathy, unspecified; E83.51 Hypocalcemia; A08.8 Other specified intestinal infections; E83.42 Hypomagnesemia; Z96.641 Presence of right artificial hip joint; Z79.51 Long term (current) use of inhaled steroids; Z90.710 Acquired absence of both cervix and uterus; Z85.3 Personal history of malignant neoplasm of breast; Z88.2 Allergy status to sulfonamides; Z88.8 Allergy status to other drugs, medicaments and biological substances; Z79.899 Other long term (current) drug therapy
CPT/HCPCS: 36415; 71045; 74176; 76700; 80048; 80053; 81001; 82533; 82550; 82570; 83605; 83690; 83735; 83880; 83930; 83935; 84300; 84443; 84484; 85025; 85027; 86850; 86900; 86901; 87040; 87086; 87324; 87449; 93005; 93306; 94640; 94664; 94760; J0456; J0696; J1644; J3475; J3480; J3490; J7050; J7620

== ENCOUNTER 2018-10-21 15:29 | Emergency (ER) | payer MEDICARE ==
--- NOTE | 2018-10-21 17:22 | RAD ---
2 views of the chest: 10/21/2018 COMPARISON: 10/16/2018 and 06/01/2016 HISTORY: Bilateral lower extremity swelling, fall FINDINGS: There is stable S shaped scoliotic curvature of the thoracic spine. There are severe degene rative changes of bilateral glenohumeral joints. There are postoperative clips in the left axillary region. The left lung is clear. Blunting of the costophrenic angle is noted on the right suggesting a small right pleural effusion. T here is nonspecific diffuse increased interstitial density within the right lung, as seen on the 10/06/2018 exam. A developing focal area of pulmonary parenchymal opacity is noted in the right lung ba se lateral to the right hilum, new when compared to the 10/06/2018 examination. Findings within the right lung parenchyma are new compared to 06/01/2016 exam. IMPRESSION: Right pleural effusion with increased interstitial density within the right lung and prob able developing focal area of parenchymal opacity within the mid right lung base. Findings may signify an infectious process or asymmetric pulmonary edema. Follow-up imaging following treatment to document resolution is advised.
[2018-10-21 17:41] LABS: #Eosinphils 0.1 thou/uL (0.0-0.7); #Lymphocytes 1.1 thou/uL (1.20-3.40); #Monocytes 0.7 thou/uL (0.11-0.59); #Neutrophils 4.3 thou/uL (1.40-6.50); %Basophils 0.4 % (0.0-1.0); %Eosinophils 2.1 % (0.0-10.0); %Lymphocytes 17.4 % (21.0-51.0); %Monocytes 11.1 % (0.0-10.0); %Neutrophils 69.1 % (42.0-75.0); Mean Corpuscular HGB CONC 32.6 g/dL (32.0-36.0); Mean Corpuscular Hemoglobin 30.7 pg (27.0-31.0); Mean Corpuscular Volume 94.3 fL (78.0-98.0); Platelet Count 309 thou/uL (130-400); RBC Distribution Width 15.9 % (11.5-14.5); White Blood Cell (WBC) Count 6.2 thou/uL (4.8-10.8)
[2018-10-21 18:10] LABS: ALT (SGPT) 28 U/L (8-55); AST (SGOT) 31 U/L (5-34); Albumin 2.5 g/dL (3.4-4.8); Alkaline Phosphatase 205 U/L (40-150); Anion Gap 16 mmol/L (10-20); BUN (Urea Nitrogen) 10 mg/dL (9.8-20.1); Bilirubin, Total 0.6 mg/dL (0.2-1.2); Calc. Creatinine Clearance 0 mL/min (70-130); Calcium 8.4 mg/dL (7.8-10.44); Carbon Dioxide 21 mmol/L (23-31); Chloride 102 mmol/L (98-107); Estimated GFR-MDRD 58; Globulin 3.1 g/dL (2.4-3.5); Glucose 81 mg/dL (83-110); Protein, Total 5.6 g/dL (6.0-8.3); Sodium 134 mmol/L (136-145)
[2018-10-21] MEDS ORDERED: Furosemide 40 MG/4 ML VIAL ONE (20:58)
== END 2018-10-21 22:16 | disposition home or self-care (01) ==
LOC: ERS 15:29
DX: I11.0 Hypertensive heart disease with heart failure (principal); I50.9 Heart failure, unspecified; J45.909 Unspecified asthma, uncomplicated; E78.00 Pure hypercholesterolemia, unspecified; K21.9 Gastro-esophageal reflux disease without esophagitis; F32.9 Major depressive disorder, single episode, unspecified; Z79.899 Other long term (current) drug therapy; Z79.51 Long term (current) use of inhaled steroids
CPT/HCPCS: 36415; 71046; 80053; 83880; 84484; 85025; 93005; 96374; J1940

== ENCOUNTER 2018-11-11 15:51 | Inpatient (IN) | payer MEDICARE ==
[2018-11-11 16:28] LABS: #Lymphocytes 2.1 thou/uL (1.20-3.40); #Neutrophils 5.7 thou/uL (1.40-6.50); %Basophils 0.1 % (0.0-1.0); %Eosinophils 0.1 % (0.0-10.0); %Lymphocytes 23.8 % (21.0-51.0); %Monocytes 10.8 % (0.0-10.0); %Neutrophils 65.2 % (42.0-75.0); Mean Corpuscular HGB CONC 32.9 g/dL (32.0-36.0); Mean Corpuscular Hemoglobin 30.8 pg (27.0-31.0); Mean Corpuscular Volume 93.7 fL (78.0-98.0); Mean Platelet Volume 7.2 fL (7.4-10.4); Platelet Count 424 thou/uL (130-400); RBC Distribution Width 15.7 % (11.5-14.5); Red Blood Cell (RBC) Count 3.89 mill/uL (4.20-5.40); White Blood Cell (WBC) Count 8.8 thou/uL (4.8-10.8)
[2018-11-11 16:47] LABS: ALT (SGPT) 22 U/L (8-55); AST (SGOT) 39 U/L (5-34); Albumin 2.9 g/dL (3.4-4.8); Alkaline Phosphatase 384 U/L (40-150); Anion Gap 17 mmol/L (10-20); BUN (Urea Nitrogen) 23 mg/dL (9.8-20.1); Bilirubin, Total 1.4 mg/dL (0.2-1.2); Calc. Creatinine Clearance 0 mL/min (70-130); Calcium 8.7 mg/dL (7.8-10.44); Carbon Dioxide 24 mmol/L (23-31); Chloride 94 mmol/L (98-107); Estimated GFR-MDRD 36; Globulin 3.2 g/dL (2.4-3.5); Glucose 85 mg/dL (83-110); Potassium 3.1 mmol/L (3.5-5.1); Protein, Total 6.1 g/dL (6.0-8.3); Sodium 132 mmol/L (136-145)
--- NOTE | 2018-11-11 17:46 | RAD ---
RADIOGRAPH CHEST 1 VIEW: DATE: 11/11/2018 TIME: 5:26 PM HISTORY: 73-year-old female with chest pain COMPARISON: 10/21/2018 FINDINGS: Right lung is hypoinflated. Blunting of the right lateral costophrenic angle. Multifocal mild patchy infiltrates scattered throughout the right lung with apparent mild interval improvement since the prior study. Left lung is well inflated and clear. No cardiomegaly. Multi curvature scoliosis of thor acolumbar spine. No pneumothorax. IMPRESSION: 1) multiple small infiltrates in right lung appear to have improved. 2) small right pleural effusion may be stable or slightly larger than before. 3) scoliosis
--- NOTE | 2018-11-11 17:59 | CT ---
CT abdomen noncontrast CT pelvis noncontrast: (Urolithiasis protocol) DATE: 11/11/2018 HISTORY: 73-year-old female for generalized pain, nausea, and vomiting. COMPARISON: 10/17/2018 TECHNIQUE: IV injection of iodinated contrast media: None Oral contrast media: None FINDINGS: Other than for urolithiasis, the lack of IV and oral contrast limits the evaluation. Interval increase in volume of the moderate size right pleural effusion. Nonspecific groundglass dens ities at the base of the right lateral. No left-sided pleural effusion. No pneumoperitoneum. Fluid-filled distended stomach has worsened. The stomach is now severely distended mostly with fluid, but with some gas. Most of the small intestine is diffusely collapsed. The colon is also collapsed. No definite renal calculus identified. Streak artifact from metallic hardware in the lumba r spine and right hip replacement hardware could obscure calculi in the bladder and ureters. Interval improvement in the previously demonstrated mild left hydronephrosis. Currently no significan t hydronephrosis. Pancreas poorly visualized. Unable to determine whether or not there is peripancreatic fat stranding to indicate pancreatitis. There is a new finding of diffuse, moderate di lation of the entire intrahepatic biliary tree. The common bile duct is probably also dilated. There is a new finding of fluid layering posteriorly in the perirectal fascial planes. There is edema throughout the subcutaneous fat consistent with anasarca, worse than before. No abdominal aortic aneurysm. No splenomegaly. IMPRESSION: 1) evidence for gastric outlet obstruction, worse since the prior CT. 2) evidence for obstruction of the entire biliary tree, new since the prior CT. 3) interval increase in volume of the moderate size right pleural effusion. 4) anasarca.
[2018-11-11] MEDS ORDERED: Ondansetron PF 4 MG/2 ML Vial ONE (18:03)
--- NOTE | 2018-11-11 19:31 | ULT ---
Right upper quadrant ultrasound: 11/11/2018 COMPARISON: None HISTORY: Decreased appetite with nausea TECHNIQUE: Multiplanar grayscale sonographic imaging of the right upper quadrant obtained. FINDINGS: The pancreas is obscured by bowel gas. Intrahepatic biliary dilatation is noted, left great er than right, better assessed on recent CT examination. A right pleural effusion is partially visualized. The common bile duct is difficult to visualize secondary to bowel gas and appears dilated, measuring approximately 7-8 mm. The gallbladder is mildly distended. There is large volume sludge within the gallbladder lumen. No gallbladder wall thickening is seen. Right kidney measures 9.5 cm in craniocaudal dimension and demonstrates no discrete stone, hydronephr osis, or mass lesion. IMPRESSION: Distended gallbladder filled with sludge. Upper limits of normal common bile duct diamete r with nonspecific intrahepatic biliary dilatation. Findings may be on the basis of a biliary obstructive process. This could be better evaluated via follow-up MRI/MRCP.
[2018-11-11] MEDS ORDERED: Acetaminophen 325 MG TAB PO PRN (20:40)
[2018-11-11] MEDS ORDERED: Ondansetron ODT 4 MG TAB PO PRN (20:40)
[2018-11-12] MEDS: Piperacillin/Tazobactam 4.5 GM in Sodium Chloride 0.9% 100 ML IVPB SCH ×2 (00:18→06:06)
[2018-11-12 00:30] VITALS: BMI 26.5
[2018-11-12] MEDS ORDERED: Pantoprazole 40 MG VIAL IVP SCH ×2 (01:00→09:00)
[2018-11-12] MEDS ORDERED: Gabapentin 300 MG CAP PO SCH ×2 (01:00→21:00)
[2018-11-12] MEDS ORDERED: Sodium Chloride 0.9% (PF) 10 ML VIAL FS PRN (01:04)
[2018-11-12] MEDS ORDERED: ALPRAZolam 0.5 MG TAB PO SCH ×2 (01:15→21:00)
[2018-11-12] MEDS ORDERED: rOPINIRole HCl 0.5 MG TAB PO SCH (01:15)
--- NOTE | 2018-11-12 02:34 | HP ---
PRIMARY CARE PHYSICIAN: Dr. Jerry Pruitt. CODE STATUS: Full code. TIME OF EVALUATION: 08:05 p.m. CHIEF COMPLAINT: Nausea, vomiting, and diarrhea. HISTORY OF PRESENT ILLNESS: This is a 73-year-old female patient with past medical history of congestive heart failure; lymphedema of the right arm; GERD; hypertension; breast cancer, status post chemoradiation; and asthma, came to the hospital after having an episode of nausea, vomiting, abdominal pain, and diarrhea. The symptoms have been [id number] and have been present for the past week. The patient was sent to the ER by the primary care doctor after concern for dehydration, being found on acute kidney injury. The patient was admitted and discharged from the hospital three weeks ago with hypotension and was discharged to rehab facility. Symptoms have no clear triggers, no alleviating factors. REVIEW OF SYSTEMS: CONSTITUTIONAL: No fever, chills, or generalized weakness. RESPIRATORY: No cough, sputum production, or shortness of breath. CARDIOVASCULAR: No chest pain or palpitation. GASTROINTESTINAL: The patient has nausea, vomiting, diarrhea, and diffuse abdominal pain. CERTIFIED ACTIVITIES DIRECTOR: No dizziness, headache, or feeling lightheaded. GENITOURINARY: No burning on urination. EXTREMITIES: PAST MEDICAL HISTORY: As mentioned in the HPI. PAST SURGICAL HISTORY: Back surgery x2, left carpal tunnel syndrome surgery, right ankle surgery, neck surgery, hip replacement, hysterectomy, and mastectomy. PSYCHIATRIC HISTORY: Includes depression. SOCIAL HISTORY: Drinks socially rarely. No drugs. No smoking. KNOWN ALLERGIES: Iodine and sulfa. REPORTED MEDICATIONS: 1. ProAir. 2. Symbicort. 3. Mirtazapine. 4. Latanoprost. 5. Furosemide. 6. Metoprolol. 7. Ipratropium. 8. Fluticasone. 9. Azelastine. 10. Gabapentin. 11. Fluoxetine. 12. Celecoxib. 13. Pravastatin. 14. Alprazolam. PHYSICAL EXAMINATION: VITAL SIGNS: On presentation; blood pressure 110/73 with heart rate of 120, respiratory rate was 20, and temperature 98.4. Pain was 2/10 and oxygen saturation was 94% on room air. GENERAL APPEARANCE: The patient is alert, oriented, not in acute distress. HEENT: Eyes, normal conjunctivae. Moist oral mucosae. Anicteric. No JVD. RESPIRATORY: Bilateral air entry. No rales. No wheezing. Symmetric expansion. CARDIOVASCULAR: Normal rate. Regular rhythm. No murmurs. No gallop. ABDOMEN: Soft. Normal bowel sounds. MUSCULOSKELETAL: Baseline range of motion and strength. No tenderness. SKIN: Warm, intact. No pallor. No rash. No redness. Peripheral pulses are present. Capillary refill seems to be intact. NEURO: No evidence of any new focal weakness. Baseline speech. Cranial nerves seem to be intact. PSYCH: The patient is in good mood. No anxiety. Optimal judgment. DIAGNOSTIC DATA: EKG was reviewed. The patient has sinus tachycardia with PACs, ventricular rate 115, [place] 136, and QRS 110. The patient has left anterior fascicular block with incomplete right BBB. QT corrected 520. Abdomen and pelvis CT was done. The patient has areas of gastric outlet obstruction, worse since prior CT. Evidence of obstruction of the entire biliary tree, new since prior CT. Interval increase of volume of the moderate-sized right pleural effusion. Anasarca. Chest x-ray showed multiple small infiltrates in the right lung appears to have improved. Small right pleural effusion, may be stable or slightly larger than before and scoliosis. Abdomen ultrasound showed distended gallbladder filled with sludge. Upper limits of normal common bile duct diameter with nonspecific intrahepatic biliary dilation. Findings might be on the basis of a biliary obstructive process. This could be better evaluated via followup MRI/MRCP. LABORATORY DATA: Labs were reviewed. The patient has a white count 8.8, hemoglobin 12, MCV 93.7, and platelet count 424. Chemistry; sodium 132, potassium 3.1, chloride 94, carbon dioxide was 24, anion gap 17, BUN 23, creatinine 1.43, previous creatinine showed it was 1.08, GFR 36, glucose 85, calcium 9.7, total bilirubin 1.4, AST 39, ALT 22, and alkaline phosphatase 384. Serum total protein 6.1, albumin 2.9, and albumin-globulin ratio is 3.2. ASSESSMENT AND PLAN: The patient will be placed in the hospital with following medical problems: 1. Possible common bile duct obstruction. The patient has mildly distended common bile duct. We will consult GI for any further recommendations. Since the biliary tree seems to be distended, Dr. Lacy had been consulted. 2. Hyponatremia, sodium 132. This is mild, no need for any acute intervention at this point. We will replace as needed. The patient is going to get NS. 3. Hypokalemia, potassium 3.1, the patient is in renal failure. We will replace as needed. 4. Acute kidney injury. The patient has BUN 23 with creatinine 1.43 and previous creatinine was 1.0. There is an increase in more than 0.3 mg/dL from previous admission, this qualify for acute kidney injury. We will hydrate, we will monitor kidney function. If not improving, might need Nephro to assist us with our patient. 5. History of congestive heart failure. The patient is having some pleural effusion. The patient may need diuresis. The patient is in kidney failure. We will need to find the right fluid balance for the patient at this point. There is a possibility for it to be cardiorenal. We will monitor and treat accordingly. As noted, the patient also has hypoalbuminemia. This might be causing in some degree, a third spacing. This patient might need some albumin to prevent this from happening. 6. History of breast cancer. This is chronic, seems to be stable. 7. Deep venous thrombosis prophylaxis. Job ID: [id number]
[2018-11-12] MEDS: Ondansetron PF 4 MG/2 ML Vial IVP PRN ×2 (02:41→10:29)
[2018-11-12] MEDS ORDERED: Sodium Chloride 0.9% 1,000 ML IV SCH ×3 (03:15→08:15)
[2018-11-12 04:22] LABS: Bilirubin Moderate (Negative); Blood, Urine Negative (Negative); Clarity CLOUDY (Clear); Glucose, Urine (Dipstick) Negative (Negative); Leukocyte Large (Negative); Nitrite Negative (Negative); Protein, Urine (Dipstick) 30 mg/dL (Neg-Trace); Specific Gravity, Urine 1.016 (1.002-1.036); Urobilinogen 0.2 mg/dL (0.2-1.0); pH, Urine 5.5 (5.0-9.0)
[2018-11-12 04:23] LABS: Bacteria/HPF 1+ HPF (None Seen)
[2018-11-12 04:25] LABS: Pathc Cast-AUWi Flag 11.69 (0-2.49)
[2018-11-12 04:37] LABS: RBC/HPF 0-3 HPF (0-3)
[2018-11-12 04:38] LABS: Manual Microscopic Reviewed? No Path Casts Seen; Transitional Epithelial 0-3 HPF (0-3)
[2018-11-12] MEDS ORDERED: Furosemide 40 MG/4 ML VIAL SLOW IVP SCH (06:00)
[2018-11-12 06:09] LABS: #Lymphocytes 1.4 thou/uL (1.20-3.40); #Monocytes 0.9 thou/uL (0.11-0.59); #Neutrophils 4.8 thou/uL (1.40-6.50); %Basophils 0.2 % (0.0-1.0); %Eosinophils 0.2 % (0.0-10.0); %Lymphocytes 19.7 % (21.0-51.0); %Monocytes 12.1 % (0.0-10.0); %Neutrophils 67.8 % (42.0-75.0); Hemoglobin 10.9 g/dL (12.0-16.0); Mean Corpuscular HGB CONC 32.9 g/dL (32.0-36.0); Mean Corpuscular Hemoglobin 30.9 pg (27.0-31.0); Mean Platelet Volume 7.6 fL (7.4-10.4); Platelet Count 315 thou/uL (130-400); RBC Distribution Width 15.6 % (11.5-14.5); Red Blood Cell (RBC) Count 3.53 mill/uL (4.20-5.40); White Blood Cell (WBC) Count 7.1 thou/uL (4.8-10.8)
[2018-11-12 06:33] LABS: Anion Gap 17 mmol/L (10-20); BUN (Urea Nitrogen) 22 mg/dL (9.8-20.1); Calc. Creatinine Clearance 44 mL/min (70-130); Calcium 7.7 mg/dL (7.8-10.44); Carbon Dioxide 19 mmol/L (23-31); Chloride 100 mmol/L (98-107); Estimated GFR-MDRD 45; Glucose 72 mg/dL (83-110); Sodium 133 mmol/L (136-145)
[2018-11-12 06:46] LABS: Potassium 2.8 mmol/L (3.5-5.1)
[2018-11-12] MEDS ORDERED: Potassium Chloride 20 MEQ TAB PO SCH (07:00)
[2018-11-12] MEDS: Mometasone/Formoterol 120 PUFF INHALER INH SCH ×2 (07:25→18:43)
[2018-11-12] MEDS ORDERED: Magnesium Sulfate 2 GM in Sodium Chloride 0.9% 100 ML IVPB SCH (08:15)
[2018-11-12] MEDS ORDERED: Diltiazem 125 MG in Sodium Chloride 0.9% 100 ML IVPB SCH (08:15)
[2018-11-12] MEDS ORDERED: Magnesium 2 GM/50 ML 2 GM in Premix Bag 1 BAG IVPB SCH (08:15)
--- NOTE | 2018-11-12 08:25 | PDOC.PN ---
- Subjective Encounter Start Date: 11/12/18 Encounter Start Time: 08:23 Subjective: nausea, no vomiting at present - Objective Resuscitation Status - Order Detail: 11/11/18 20:40 Resuscitation Status Routine Resuscitation Status: FULL: Full Resuscitation MAR Reviewed: Yes Vital Signs & Weight: Vital Signs (12 hours) Temp Pulse Resp BP Pulse Ox 11/12/18 04:00 98.5 F 140 H 16 129/77 98 11/11/18 23:10 98.3 F 138 H 21 H 151/87 H 96 Weight Weight 145 lb 1.6 oz I&O: 11/11/18 11/12/18 11/13/18 06:59 06:59 06:59 Intake Total 1670 Output Total 1600 Balance 70 Result Diagrams: 11/12/18 05:23 11/12/18 05:23 Phys Exam - Physical Examination Neck: no JVD Respiratory: clear to auscultation bilateral Cardiovascular: RRR, no significant murmur tachy Gastrointestinal: soft, positive bowel sounds ddistended Musculoskeletal: edema present lymphedema R arm Dx/Plan (1) Gastric outlet obstruction Code(s): K31.1 - ADULT HYPERTROPHIC PYLORIC STENOSIS Status: Acute (2) Biliary tract obstruction Status: Acute (3) Acute on chronic renal failure Code(s): N17.9 - ACUTE KIDNEY FAILURE, UNSPECIFIED; N18.9 - CHRONIC KIDNEY DISEASE, UNSPECIFIED Status: Acute Qualifiers: Acute renal failure type: unspecified (4) Tachycardia Code(s): R00.0 - TACHYCARDIA, UNSPECIFIED Status: Acute (5) HTN (hypertension) Code(s): I10 - ESSENTIAL (PRIMARY) HYPERTENSION Status: Chronic Qualifiers: Hypertension type: essential hypertension Qualified Code(s): I10 - Essential (primary) hypertension (6) Dyslipidemia Code(s): E78.5 - HYPERLIPIDEMIA, UNSPECIFIED Status: Chronic (7) Hypokalemia Code(s): E87.6 - HYPOKALEMIA Status: Acute - Plan NPO, IV fluids, GI consult -: iv rocephin * .
[2018-11-12 08:34] LABS: Albumin 2.5 g/dL (3.4-4.8)
[2018-11-12 08:36] LABS: Protein, Total 5.2 g/dL (6.0-8.3)
[2018-11-12 08:38] LABS: Bilirubin, Total 1.7 mg/dL (0.2-1.2)
[2018-11-12 08:39] LABS: Alkaline Phosphatase 337 U/L (40-150); Phosphorus 4.4 mg/dL (2.3-4.7)
[2018-11-12 08:41] LABS: AST (SGOT) 36 U/L (5-34); Bilirubin, Direct 1.2 mg/dL (0.1-0.3)
[2018-11-12 08:42] LABS: ALT (SGPT) 20 U/L (8-55); CK (CPK) 55 U/L (29-168)
--- NOTE | 2018-11-12 08:51 | PDOC.EVN ---
Event Note - Event Note Event Note: Patient on my list to be seen this morning, while completing computer rounds, I noticed findings of gastric outlet obstruction on CT Abdomen/Pelvis done yesterday. Called nurse to verify patient was actively vomiting overnight, output of 2L. Also tachy with a rate in 130s to 140, aflutter, new onset. GI consult placed yesterday for intrahepatic biliary obstruction (t. bili 1.4). I have contacted Dr. Lacy to provide update. Discussed plan with lead physician Dr. Duncan including the following. NGT placement. Strict NPO. IVF changed from NS 75 cc/hr to D5W with KCl at 125 cc/hr. (K+ 2.8) and Mg+ 2gm x 1. Stat labs. Cardiology consult and Cardizem drip 5 mg/hr. I updated Olivia with plan above, Dr. Adame examining patient therefore will leave further orders to him as he will assume her care. Notified patient in Sinus tach, no aflutter. Cardizem and Cardio consult cancelled. Dr. Lacy has called me back and I have provided update as above. Tachy associated with volume depletion rather than arrhythmia therefore Bolus of IVF will be given and he will by to see her. Proceed with NGT. Above also communicated with Dr. Adame.
[2018-11-12 08:55] LABS: Lipase 1323 U/L (8-78)
[2018-11-12] MEDS ORDERED: Furosemide 20 MG TAB PO SCH (09:00)
[2018-11-12] MEDS ORDERED: FLUoxetine HCl 20 MG CAP PO SCH (09:00)
[2018-11-12] MEDS ORDERED: CeleCOXIB 100 MG CAP PO SCH (09:00)
[2018-11-12] MEDS: D5 NS w/ 40 mEq KCl 1,000 ML IV SCH ×2 (09:52→20:49)
[2018-11-12] MEDS: Pantoprazole 40 MG VIAL IVP SCH ×2 (10:29→20:48)
[2018-11-12] MEDS: Enoxaparin Sodium 40 MG/0.4 ML SYRINGE SC SCH (10:30)
[2018-11-12] MEDS ORDERED: Gadobenate Dimeglumine 529 MG/1 ML (20ML VIAL) ONE (10:42)
[2018-11-12] MEDS: cefTRIAXone\\ROCEPHIN 2 GM in Sodium Chloride 0.9% 100 ML IVPB SCH (11:41)
[2018-11-12] MEDS ORDERED: Lidocaine 2% 11 ML SYR TOP SCH (13:45)
--- NOTE | 2018-11-12 16:28 | MRI ---
EXAM: MRI of the abdomen without and with contrast COMPARISON: CT abdomen/pelvis and abdominal ultrasound 11/11/2018 HISTORY: Elevated LFTs. Abdominal pain with nausea and vomiting for one week TECHNIQUE: Multiplanar multi sequence MR images were taken of the abdomen without and with IV contras t. An MRCP was performed. FINDINGS: The patient's spinal hardware produces susceptibility artifact limiting this examination. Liver: There is severe intrahepatic biliary dilatation. No focal liver lesions are present. Normal si gnal without dropout on out of phase images. Gallbladder: No filling defects or gallbladder wall thickening. Common bile duct: Severe common bile duct dilatation to 13 mm. No filling defects are seen within the common bile duct. The common bile duct tapers to a normal caliber within the pancreatic head at the ampulla of Vater. Adrenal glands: Unremarkable. Kidneys: No hydronephrosis or focal renal lesions. Spleen: Unremarkable. Pancreas: No pancreatic mass is seen as a cause for the biliary dilatation.. Retroperitoneum: No enlarged lymph nodes Bones: No marrow signal abnormality. There is a moderate right pleural effusion IMPRESSION: 1. Severe intrahepatic and extra hepatic biliary dilatation without obvious filling defect or pancrea tic head mass. 2. Right pleural effusion
--- NOTE | 2018-11-12 16:51 | CON ---
DATE OF CONSULTATION: HISTORY OF PRESENT ILLNESS: The patient is a 73-year-old woman, who presented with nausea, vomiting, weakness, and abdominal discomfort. The patient has no known cardiac history. She had recently noted having increasing lower extremity swelling. She was referred for evaluation and the patient was admitted several weeks ago with hyponatremia and treated with antibiotics for presumed infection. The patient was thought to have possible pneumonia. She re-presented to the emergency room with abdominal discomfort. She had been having projectile vomiting. She had previously seen a golf technician to undergo a GI evaluation. The patient has been admitted to telemetry and was noted to have a rapid heart rate. The patient denied having any palpitations. She denies having any chest discomfort. PAST MEDICAL HISTORY: Significant for, 1. Breast carcinoma. 2. Asthma. 3. Hypertension. 4. Dyslipidemia. 5. Lymphedema. PAST SURGICAL HISTORY: She had back surgery, ankle surgery, hip surgery, hysterectomy, carpal tunnel syndrome surgery, and ankle surgery. SOCIAL HISTORY: Nonsmoker. ALLERGIES: SHE IS ALLERGIC TO IODINE AND SULFA. MEDICATIONS: See nursing list. FAMILY HISTORY: Positive family history of mother, who had congestive heart failure. REVIEW OF SYSTEMS: Noticeable for weakness, difficulty with eating. Ten-point system otherwise unremarkable. PHYSICAL EXAMINATION: GENERAL: This is an ill-appearing woman with a blood pressure of 112/72. NECK: Showed no jugular venous distention. LUNGS: Clear to auscultation. HEART: Regular rate and rhythm. Normal S1 and S2. Tachycardic with no murmurs. ABDOMEN: Distended. EXTREMITIES: Showed moderate bilateral edema. The right upper extremity is markedly swollen. VASCULAR: Radial pulses are 2+. LABORATORY DATA: Sodium 133, potassium 2.8, chloride 100, bicarbonate 19, BUN 22, and creatinine 1.18. Her BNP was 90. Lipase 1323. White blood cell count 7.1, hemoglobin 10.9, hematocrit 32.2, and platelets are 215. IMAGING DATA: Her EKG revealed a supraventricular tachycardia with nonspecific intraventricular conduction delay. Q-waves suggestive of a possible previous anterior infarct. Her echocardiogram revealed normal left ventricular ejection fraction 50% to 55% with diastolic dysfunction. IMPRESSION: 1. Supraventricular tachycardia, probably sinus tachycardia. 2. Common bile duct obstruction. 3. Hypertension. 4. History of breast carcinoma. 5. Anasarca. 6. History of breast carcinoma. PLAN: This patient appears to be in marked sinus tachycardia. She also has anasarca. She appears to be markedly malnourished. Her albumin is very low. From a cardiac standpoint, her echocardiogram reveals normal left ventricular systolic function and her BNP is normal. We will monitor the patient on telemetry. She will continue on her low dose of Toprol. We will follow this patient with you through her hospitalization. Job ID: [id number]
--- NOTE | 2018-11-12 18:01 | EKG ---
Test Reason : Blood Pressure : / mmHG Vent. Rate : 125 BPM Atrial Rate : 054 BPM P-R Int : 000 ms QRS Dur : 118 ms QT Int : 396 ms P-R-T Axes : 000 -54 102 degrees QTc Int : 571 ms narrow complex tachycardia without well defined p waves Left anterior fascicular block Left ventricular hypertrophy with QRS widening and repolarization abnormality Possible Anterolateral infarct (cited on or before 16-OCT-2018) Abnormal ECG When compared with ECG of 21-OCT-2018 20:22, (Unconfirmed) Junctional rhythm has replaced Sinus rhythm Vent. rate has increased BY 44 BPM Serial changes of Anterior infarct Present Confirmed by DR. Stephen GONZALEZ (3) on 11/12/2018 6:00:43 PM Referred By: DOLLY Confirmed By:DR. Stephen GONZALEZ
[2018-11-12] MEDS: rOPINIRole HCl 0.5 MG TAB PO SCH (20:50)
[2018-11-12] MEDS ORDERED: Pravastatin Sodium 20 MG TAB PO SCH (21:00)
--- NOTE | 2018-11-12 21:01 | CON ---
DATE OF CONSULTATION: 11/12/2018 CHIEF COMPLAINT: Abdominal pain and nausea and vomiting. HISTORY OF PRESENT ILLNESS: Ms. Yu is a 73-year-old woman who had relatively sudden onset of nausea and vomiting, and abdominal pain back in August. She had intermittent pressure-like pain that will cause bloating and distention in her upper abdomen and then can cause more sharp pain in the lower abdomen. This has been on and off several days per week over the last few months. She has also had intermittent diarrhea a few days per week with 3 or 4 mushy stools per day. She had stool studies performed which were negative. She has been treated for Helicobacter pylori. She ultimately underwent EGD and colonoscopy by Dr. Lisa hatch on October 06, 2018. The upper endoscopy was unremarkable. Biopsies were unremarkable from the stomach. Colonoscopy revealed a small adenoma which was removed. Random biopsies from the colon were negative for chronic microscopic colitis. She went to the emergency room in mid September and had a noncontrast CT scan performed. She does report a prior history of IV iodinated contrast allergy. The CT scan showed some gastric distention and hydronephrosis. She was also noted to have pneumonia for which she was treated with antibiotics. She came back to the emergency room last night and an ultrasound of the abdomen was performed. This showed dilation of the intrahepatic bile ducts, also mild dilation of the common bile duct, 7-8 mm. There were sludge noted in the gallbladder, but no stones. She had a CT scan of the abdomen and pelvis again without contrast which was repeated yesterday. This now showed significant dilation of the intrahepatic ducts, which was new compared to the prior CT. She showed marked distention of the stomach concerning for gastric outlet obstruction. She was noted to have a right-sided pleural effusion and anasarca. Her liver tests and pancreatic enzymes were also noted to now be elevated. She last threw up last night. She had attempt at NG tube placement. She has had a deviated septum, a very narrow nose, and so far the NG tube has not been successfully placed. She has had no blood in the stool. No fever. PAST MEDICAL HISTORY: Breast cancer status post mastectomy and chemotherapy. She has associated lymphedema of the right arm. She was told she has congestive heart failure, which was mild. She has a history of gastroesophageal reflux disease and hypertension. PAST SURGICAL HISTORY: Mastectomy, back surgery, carpal tunnel release, neck surgery, hip replacement, hysterectomy, ankle surgery. FAMILY HISTORY: Negative for GI malignancy. SOCIAL HISTORY: No alcohol, tobacco, or drugs. ALLERGIES: IODINATED CONTRAST AND SULFA. OUTPATIENT MEDICATIONS: 1. Symbicort. 2. ProAir. 3. Mirtazapine. 4. Latanoprost. 5. Furosemide. 6. Metoprolol. 7. Ipratropium. 8. Fluticasone. 9. Azelastine. 10. Gabapentin. 11. Fluoxetine. 12. Celebrex. 13. Pravastatin. 14. Alprazolam. Most recently, she has been on Dexilant. Prior to that, she was on esomeprazole and pantoprazole without improvement. REVIEW OF SYSTEMS: Negative x10 systems reviewed except as stated in the history of present illness. PHYSICAL EXAMINATION: VITAL SIGNS: Temperature 97.6, pulse 119, blood pressure 98/59. GENERAL: She is in no acute distress. Alert and oriented x3. HEENT: Her eyes have no scleral icterus. Oropharynx is clear without lesions. No cervical or supraclavicular lymphadenopathy. LUNGS: Clear to auscultation bilaterally. HEART: Tachycardic, S1, S2 without murmur. ABDOMEN: Soft, really minimal tenderness without guarding. Her bowel sounds are active. EXTREMITIES: She has 2+ pitting lower extremity edema, also angioedema of the right arm. LABORATORY DATA: White blood cell count 7.1, hemoglobin is 10.9, down from 12.0 last night after hydration, platelets 315. Creatinine is 1.18 today, down from 1.43 yesterday evening. Bilirubin 1.7, AST 36, ALT 20, alkaline phosphatase 337, albumin 2.5, amylase 862, lipase 1323, upper limit of normal in this lab at 78. IMAGING: CT scan of the abdomen and pelvis as discussed in the history of present illness, shows distended stomach and biliary tree dilation and right-sided pleural effusion and anasarca. 1. Acute pancreatitis with pancreatic enzymes well over 3 times upper limit of normal. CT scan is without contrast and the pancreas is not evaluated for that reason. There is distention of the stomach concerning for gastric outlet obstruction. However, given that she just had an EGD last month showing no structural lesion here, this might more likely be an outlet issue related to acute pancreatitis versus a paraneoplastic gastroparesis if she did have a pancreatic neoplasm. She has had no prior pancreatitis. There were no obvious stones in the gallbladder. However, gallstone pancreatitis is another possible etiology. 2. Biliary dilation. We will need to rule out a pancreatic mass versus choledocholithiasis. Her bilirubin and alkaline phosphatase are elevated. 3. Intermittent diarrhea. Her stool studies have been negative and colonoscopy was negative. This seems to be relatively mild compared to her other symptoms at this point. RECOMMENDATIONS: 1. We will try to replace the NG tube, perhaps with a 14-Swedish with assistance of viscous lidocaine. She does have a deviated septum and narrow nasal passage way. 2. MRI with MRCP to evaluate for biliary obstruction, rule out choledocholithiasis and evaluate for pancreatic mass. She will be able to receive gadolinium IV contrast. She does have a history of iodinated contrast allergy and has not received an IV contrast CT as of yet. Job ID: [id number]
[2018-11-13] MEDS: Ondansetron PF 4 MG/2 ML Vial IVP PRN (00:43)
[2018-11-13] MEDS: D5 NS w/ 40 mEq KCl 1,000 ML IV SCH ×5 (01:24→23:24)
[2018-11-13] MEDS: Mometasone/Formoterol 120 PUFF INHALER INH SCH ×2 (07:34→19:16)
--- NOTE | 2018-11-13 08:34 | CON ---
DATE OF CONSULTATION: ADDENDUM: I did place a 14-Pashto NG tube with assistance of viscous lidocaine. The patient vomited 100 mL prior to placement. I returned 400 mL immediately with suction of the NG tube once it was placed. However, I remained to keep this on low intermittent suction and follow through with the MRI. Job ID: [id number]
[2018-11-13] MEDS: Enoxaparin Sodium 40 MG/0.4 ML SYRINGE SC SCH (09:00)
[2018-11-13] MEDS ORDERED: Pantoprazole 40 MG VIAL IVP SCH (09:00)
[2018-11-13] MEDS ORDERED: Indomethacin 50 MG SUPP ONE (09:19)
[2018-11-13] MEDS ORDERED: Levofloxacin 500 mg/D5W 100 ml Premix Bag ONE (09:35)
[2018-11-13 09:37] LABS: #Lymphocytes 2.1 thou/uL (1.20-3.40); #Neutrophils 4.9 thou/uL (1.40-6.50); %Basophils 0.4 % (0.0-1.0); %Eosinophils 0.6 % (0.0-10.0); %Monocytes 11.8 % (0.0-10.0); %Neutrophils 61.2 % (42.0-75.0); Mean Corpuscular HGB CONC 33.3 g/dL (32.0-36.0); Mean Corpuscular Hemoglobin 31.4 pg (27.0-31.0); Mean Corpuscular Volume 94.3 fL (78.0-98.0); Mean Platelet Volume 7.7 fL (7.4-10.4); Platelet Count 353 thou/uL (130-400); Red Blood Cell (RBC) Count 3.83 mill/uL (4.20-5.40)
[2018-11-13 10:01] LABS: ALT (SGPT) 21 U/L (8-55); AST (SGOT) 43 U/L (5-34); Albumin 2.6 g/dL (3.4-4.8); Alkaline Phosphatase 347 U/L (40-150); Anion Gap 16 mmol/L (10-20); BUN (Urea Nitrogen) 19 mg/dL (9.8-20.1); Bilirubin, Total 1.8 mg/dL (0.2-1.2); Calc. Creatinine Clearance 44 mL/min (70-130); Calcium 8.2 mg/dL (7.8-10.44); Carbon Dioxide 21 mmol/L (23-31); Chloride 107 mmol/L (98-107); Estimated GFR-MDRD 45; Glucose 83 mg/dL (83-110); Potassium 3.5 mmol/L (3.5-5.1); Protein, Total 5.6 g/dL (6.0-8.3); Sodium 140 mmol/L (136-145)
[2018-11-13 10:09] LABS: INR-International Normal Ratio 1.5; Prothrombin Time 18.3 SEC (12.0-14.7)
[2018-11-13] MEDS ORDERED: Iothalamate Meglumine 60% 50 ML VIAL FS ONE (10:12)
[2018-11-13 10:14] LABS: Lipase 1587 U/L (8-78)
[2018-11-13] MEDS ORDERED: Fentanyl 100 MCG/2 ML VIAL ONE (11:14)
[2018-11-13] MEDS ORDERED: Promethazine HCl 25 MG/ML VIAL IM PRN (12:30)
[2018-11-13] MEDS ORDERED: Promethazine HCl 25 MG/ML VIAL SLOW IVP PRN (12:30)
[2018-11-13] MEDS ORDERED: PACU-Morphine 4MG/ML VIAL SLOW IVP PRN (12:30)
[2018-11-13] MEDS ORDERED: Morphine Sulfate 2 MG/ML SYRINGE SLOW IVP PRN (12:30)
[2018-11-13] MEDS ORDERED: Ondansetron HCl/PF 4 MG/2 ML Vial IVP PRN (12:30)
[2018-11-13] MEDS ORDERED: HYDROmorphone 2 MG/ML VIAL SLOW IVP PRN (12:30)
[2018-11-13] MEDS ORDERED: Meperidine HCl/PF 25 MG/ML VIAL SLOW IVP PRN (12:30)
[2018-11-13] MEDS: cefTRIAXone\\ROCEPHIN 2 GM in Sodium Chloride 0.9% 100 ML IVPB SCH (14:35)
[2018-11-13] MEDS: Pantoprazole 40 MG VIAL IVP SCH ×2 (14:36→20:35)
--- NOTE | 2018-11-13 15:49 | PRG ---
DATE OF SERVICE: 11/13/2018 SUBJECTIVE: The patient was seen and examined at the bedside. She just came back from procedure room. Apparently, Dr. Cooley was not able to finish her procedure because of some blockages in the GI tract, which stopped him from finishing the full procedure. OBJECTIVE: VITAL SIGNS: Blood pressure is 137/81, pulse is 94, temperature is 97.5, respirations are 16, O2 saturation is 97% on room air. HEENT: Eyes, PERRLA. Sclerae nonicteric. Oral mucosa is moist. NECK: Supple. LUNGS: Clear. HEART: S1 and S2, somewhat irregular. No S3. No S4. ABDOMEN: Soft, nontender. EXTREMITIES: She has 1 to 2+ peripheral edema, similar bilateral on both lower extremities. NEUROLOGICAL: She follows my commands. She does not have any motor deficits. LABORATORY DATA: Labs showed white count of 8.0, hemoglobin 12.0, hematocrit 36.1, platelet count is 353,000. INR is 1.5. Sodium of 140, potassium 3.5, chloride 107, CO2 of 21, BUN 19, creatinine 1.18, glucose 83, total bilirubin 1.8, AST 43, ALT 21, and alkaline phosphatase 347. Lipase 1587, albumin 2.6. IMPRESSION: 1. Acute pancreatitis. 2. Biliary dilatation. 3. Gastric outlet obstruction. 4. Acute on chronic renal failure. 5. Tachycardia, felt to be supraventricular tachycardia. 6. Hypertension. 7. Dyslipidemia. 8. Hypokalemia. DISCUSSION: MRI showed severe intrahepatic and extrahepatic biliary dilatation without obvious filling defect of pancreatic head mass. Also, there was some evidence of right pleural effusion. The case was discussed with Dr. Cooley, who finished his procedures for today and he is not sure what has caused the blockage, but most likely outside of the GI tract is pushing and obstructing the outlet. MRI of the abdomen and pelvis will be reviewed by the radiologist to look for possible explanation of above-mentioned findings. We are going to keep her on a small dose of beta-cheyenne to suppress the SVT recurrence. Potassium and sodium replaced and they are back to normal range. Her kidney function is stable. Her creatinine is 1.18, which is exactly the same what it was yesterday, and continue Rocephin for possible UTI based on urinalysis. We do not see that the urine culture was obtained during this visit. Job ID: [id number]
[2018-11-13] MEDS ORDERED: PHENYLEPHRINE-NS 100 MCG/ML 10 ML SYRINGE ONE (16:28)
[2018-11-13] MEDS ORDERED: PROPOFOL 200 MG/20 ML VIAL ONE (16:28)
[2018-11-13] MEDS ORDERED: Dexamethasone 20 MG/5 ML VIAL ONE (16:28)
[2018-11-13] MEDS ORDERED: Ondansetron PF 4 MG/2 ML Vial ONE (16:28)
[2018-11-13] MEDS ORDERED: Succinylcholine Chloride 20 MG/ML 10 ml SYRINGE FS ONE (16:28)
[2018-11-13] MEDS ORDERED: Lidocaine 1% PF 5 ML VIAL ONE (16:28)
--- NOTE | 2018-11-13 20:14 | OP ---
DATE OF PROCEDURE: 11/13/2018 PROCEDURE PERFORMED: 1. Unsuccessful endoscopic retrograde cholangiopancreatography. 2. Esophagogastroduodenoscopy and enteroscopy with biopsies of the ampulla region and a duodenum stricture. 3. Endoscopic retrograde cholangiopancreatography and decompression of biliary tree and possible brushings for possible pancreatic malignancy or obstructive process. ANESTHESIA: General endotracheal anesthesia. ANTIBIOTICS: Levaquin 500 mg IV, Indocin suppositories, IV fluids. PREPROCEDURE DIAGNOSIS: The patient has come in with history of intermittent vomiting with normal upper and lower endoscopies last month, now with signs of gastric bowel obstruction, biliary obstruction and pancreatitis with no pain. POSTPROCEDURE DIAGNOSES: 1. Endoscopic retrograde cholangiopancreatography was unsuccessful as we were not able to advance to the ampulla secondary due to compression of the duodenum externally in the second and third portions. 2. Retained gastric contents suctioned away to the best of our ability. NG tube was placed at the termination of procedure, secondary gastric outlet obstruction. 3. Esophagogastroduodenoscopy with enteroscopy with biopsy of a prominent appearing ampulla in specimen B and biopsies of the apex of the duodenal stricture specimen A. There was no clear tumor in the duodenum, possibly there was melena infiltration of the ampulla, but it all may just be edematous change. Biopsies, however, were obtained. RECOMMENDATIONS: 1. Await biopsies. 2. Check CEA and CA 19-9. 3. Consider surgical consultation. All this may be at the region where we think the problem exists. This may be the case better transferred to an area where pancreatobiliary surgery is available. DESCRIPTION OF PROCEDURE: The patient was informed of risks, benefits, and possible complications of endoscopy and ERCP including the risk of perforation, bleeding, reaction to medication, aspiration and pancreatitis. Informed consent was obtained. The patient was brought to the endoscopy suite, where she was sedated and intubated and placed in a prone position. A bite block was placed in the orifice. The side-viewing duodenoscope was advanced through esophagus into the stomach, there was quite a bit of retained food and liquids. We cleared some of this away and we were able to get into the pylorus, but there was retained food matter here as well, so the scope was removed and exchanged for a four viewing therapeutic scope. We were able to decompress some of the stomach and remove some of the food and liquid but could not remove all of it. We were able to get around into the second portion of the duodenum where there was some fullness in the left, which I think is the ampulla, but because the duodenum was so compressed we were unable to tell. We went ahead and exchanged the scope for a colonoscope as we had reached its maximum length and could not get through the narrowed area. With the colonoscope advanced into the esophagus, stomach, and duodenum. The duodenum appeared to be narrowed with external compression in the region of the second portion of the duodenum. We could see beyond this, but the scope would not go beyond it. It was very firm in this area. Multiple biopsies were taken of this area. There was no overt tumor involving the mucosa. This all seemed to be submucosal and possibly extrinsic compression. The area of the ampulla bulge on the inner wall of the C-loop was identified, although no bile was noted to come from it and is not clear if this was the ampulla, but it was a different area appearing tissue, it was biopsied and it was firm. It did not have the appearance, however, of intraluminal malignancy. After all these biopsies were taken. The stomach was desufflated. The scope was removed. An NG tube was placed. The patient was brought to the recovery room in stable condition. Job ID: [id number]
[2018-11-13] MEDS: rOPINIRole HCl 0.5 MG TAB PO SCH (20:35)
[2018-11-13] MEDS: Morphine 2 MG/ML SYRINGE SLOW IVP PRN (20:35)
[2018-11-13] MEDS: Lorazepam 2 MG/ML VIAL SLOW IVP PRN (20:36)
[2018-11-14 05:08] LABS: #Lymphocytes 1.3 thou/uL (1.20-3.40); #Monocytes 0.5 thou/uL (0.11-0.59); #Neutrophils 4.6 thou/uL (1.40-6.50); %Basophils 0.2 % (0.0-1.0); %Eosinophils 0.1 % (0.0-10.0); %Lymphocytes 20.2 % (21.0-51.0); %Monocytes 8.1 % (0.0-10.0); %Neutrophils 71.4 % (42.0-75.0); Hemoglobin 9.9 g/dL (12.0-16.0); Mean Corpuscular HGB CONC 32.5 g/dL (32.0-36.0); Mean Corpuscular Hemoglobin 30.9 pg (27.0-31.0); Mean Platelet Volume 7.6 fL (7.4-10.4); Platelet Count 304 thou/uL (130-400); RBC Distribution Width 15.7 % (11.5-14.5); White Blood Cell (WBC) Count 6.5 thou/uL (4.8-10.8)
[2018-11-14 05:33] LABS: ALT (SGPT) 20 U/L (8-55); AST (SGOT) 37 U/L (5-34); Albumin 2.3 g/dL (3.4-4.8); Alkaline Phosphatase 299 U/L (40-150); Anion Gap 13 mmol/L (10-20); BUN (Urea Nitrogen) 18 mg/dL (9.8-20.1); Bilirubin, Total 0.9 mg/dL (0.2-1.2); Calc. Creatinine Clearance 46 mL/min (70-130); Calcium 8.1 mg/dL (7.8-10.44); Carbon Dioxide 21 mmol/L (23-31); Chloride 112 mmol/L (98-107); Estimated GFR-MDRD 47; Globulin 2.7 g/dL (2.4-3.5); Glucose 137 mg/dL (83-110); Lipase 240 U/L (8-78); Potassium 4.3 mmol/L (3.5-5.1); Sodium 142 mmol/L (136-145)
[2018-11-14] MEDS: Mometasone/Formoterol 120 PUFF INHALER INH SCH ×2 (07:25→18:44)
[2018-11-14] MEDS: Enoxaparin Sodium 40 MG/0.4 ML SYRINGE SC SCH (12:01)
[2018-11-14] MEDS: Pantoprazole 40 MG VIAL IVP SCH ×2 (12:02→21:19)
[2018-11-14] MEDS: cefTRIAXone\\ROCEPHIN 2 GM in Sodium Chloride 0.9% 100 ML IVPB SCH (12:02)
[2018-11-14] MEDS: D5 NS w/ 40 mEq KCl 1,000 ML IV SCH ×2 (12:02→19:59)
--- NOTE | 2018-11-14 14:19 | PDOC.PN ---
- Subjective Encounter Start Date: 11/14/18 Encounter Start Time: 13:55 Subjective: f/u for intestinal mass with pancreatitis and N/V. Feels ok with NGT in -: place. NPO currently with ice chips. - Objective Resuscitation Status - Order Detail: 11/11/18 20:40 Resuscitation Status Routine Resuscitation Status: FULL: Full Resuscitation MAR Reviewed: Yes Vital Signs & Weight: Vital Signs (12 hours) Temp Pulse Resp BP Pulse Ox 11/14/18 07:50 97.7 F 93 20 119/78 94 L 11/14/18 07:25 90 16 92 L 11/14/18 03:28 97.6 F 88 18 123/69 95 Weight Admit Weight 145 lb 1.6 oz Weight 145 lb 1.6 oz I&O: 11/13/18 11/14/18 11/15/18 06:59 06:59 06:59 Intake Total 2750 1500 Output Total 1300 750 Balance 1450 750 Result Diagrams: 11/14/18 04:30 11/14/18 04:30 Additional Labs: Laboratory Tests 10/15/18 11/11/18 11/12/18 17:12 16:10 05:23 Potassium 3.1 L 2.8 L* Creatinine 1.43 H 1.18 H AST 39 H 36 H Alkaline Phosphatase 384 H 337 H Lipase 1323 H Carcinoembryonic Ag CA 27-29 499.2 H 11/13/18 11/14/18 11/14/18 09:00 04:30 04:30 Potassium 3.5 Creatinine 1.18 H AST 43 H 37 H Alkaline Phosphatase 347 H 299 H Lipase 1587 H 240 H Carcinoembryonic Ag 56.96 H CA 27-29 Radiology Reviewed by me: Yes (ABD MRI - no mass noted, hepatic biliary dilation ) EKG Reviewed by me: Yes (Tele - SR) Phys Exam - Physical Examination Constitutional: NAD NGT in place HEENT: PERRLA, sclera anicteric, oral pharynx no lesions Neck: no nodes, no JVD, supple, full ROM Respiratory: no wheezing, no rales, no rhonchi, clear to auscultation bilateral S1, S2 Cardiovascular: RRR, no significant murmur, no rub, gallop Gastrointestinal: soft, non-tender, no distention, positive bowel sounds RUE with chronic lymphedema, LUE forearm edema, PICC line in place Musculoskeletal: pulses present, edema present Neurological: normal sensation, moves all 4 limbs Psychiatric: A&O x 3 Skin: normal turgor, cap refill <2 seconds Dx/Plan (1) Pancreatic mass Status: Acute Comment: s/p biopsy with pathology pending, supportive mgmt (2) Biliary tract obstruction Status: Acute Comment: See above, await pathology results, NGT in place (3) Gastric outlet obstruction Code(s): K31.1 - ADULT HYPERTROPHIC PYLORIC STENOSIS Status: Acute Comment: See above (4) Acute on chronic renal failure Code(s): N17.9 - ACUTE KIDNEY FAILURE, UNSPECIFIED; N18.9 - CHRONIC KIDNEY DISEASE, UNSPECIFIED Status: Acute Qualifiers: Acute renal failure type: unspecified Comment: Improved with IVF's, avoid nephrotoxic meds and limit contrast (5) Hypokalemia Code(s): E87.6 - HYPOKALEMIA Status: Acute Comment: Resolving (6) HTN (hypertension) Code(s): I10 - ESSENTIAL (PRIMARY) HYPERTENSION Status: Chronic Qualifiers: Hypertension type: essential hypertension Qualified Code(s): I10 - Essential (primary) hypertension Comment: Stable, continue Metoprolol - Plan psychotherapist social worker, out of bed/ambulate, DVT proph w/lovenox, DVT proph w/SCDs Stable currently -: Viscous Lidocaine PRN -: Antiemetics PRN -: Await final pathology from intestinal/biliary bx -: AM lab: CMP, Lipase * .
[2018-11-14] MEDS ORDERED: Lidocaine Viscous Sol 2% 15 ml UD Cup SSW PRN (14:25)
[2018-11-14] MEDS: Lorazepam 2 MG/ML VIAL SLOW IVP PRN (21:19)
[2018-11-14] MEDS: rOPINIRole HCl 0.5 MG TAB PO SCH (21:19)
[2018-11-14] MEDS: Morphine 2 MG/ML SYRINGE SLOW IVP PRN (21:20)
--- NOTE | 2018-11-14 22:50 | CON ---
DATE OF CONSULTATION: REASON FOR CONSULT: Breast cancer. HISTORY OF PRESENT ILLNESS: Ms. Yu is a pleasant 73-year-old patient of Dr. Herrera, who has a history of bilateral breast cancer in 2000. She has a severe left lymphedema of her right upper extremity. She presented for her annual visitation in September with Dr. Herrera. She was feeling poorly and had periodic vomiting and gastrointestinal reflux. No headache, chest pain, or shortness of breath. She had lost several pounds of weight. She had undergone upper and lower GI endoscopy by Dr. Gonzalez, and was scheduled for a CT scan of her abdomen. She had a CEA of 49 and a CA 27.29 of 499. She had presented to the hospital on the after Dr. Herrera's visit and then went to the rehab. She was diagnosed with pneumonia and congestive heart failure. She went home and saw her primary care , who manisha labs and sent the patient to the emergency room for elevated liver functions and possible pancreatitis. GI saw the patient and she underwent endoscopy. ERCP was unsuccessful secondary to decompression of the duodenum. She did have biopsies of the ampulla region and duodenum stricture, which were negative for malignancy. She complains of mild shortness of breath and bilateral lower extremity swelling. She has an NG tube in place. No nausea, abdominal pain, or diarrhea. PAST MEDICAL HISTORY: 1. Bilateral breast cancer. 2. Chronic severe right upper extremity lymphedema. 3. Osteopenia. 4. Hypertension. 5. Congestive heart failure. PAST SURGICAL HISTORY: 1. Back surgeries x2. 2. Carpal tunnel. 3. Hip replacement. 4. Bilateral mastectomy. 5. Hysterectomy. 6. Oophorectomy. ALLERGIES: DEMEROL, IODINE, AND SULFA. HOME MEDICATIONS: 1. Albuterol p.r.n. 2. Xanax q.h.s. 3. Formoterol inhaler b.i.d. 4. Celebrex daily. 5. Fluoxetine daily. 6. Lasix daily. 7. Neurontin daily. 8. Metoprolol 25 mg daily. 9. Pravachol 20 mg daily. 10. Ropinirole daily. FAMILY HISTORY: Noncontributory. SOCIAL HISTORY: , lives with her daughter. No alcohol, tobacco, or illicit drug use. REVIEW OF SYSTEMS: A 10-point review of systems is negative, except for noted in HPI. PHYSICAL EXAMINATION: VITAL SIGNS: Temperature is 97.7, pulse is 93, respiratory rate 20, blood pressure is 119/78, she is 94% on room air. GENERAL: Well-developed, well-nourished female, in no acute distress. HEENT: Normocephalic and atraumatic. Pupils are equal and reactive to light. She has an NG tube in place in right naris. NECK: Supple. CV: Regular rate and rhythm. LUNGS: Clear. ABDOMEN: Soft and nontender. Bowel sounds are hypoactive. EXTREMITIES: 2+ pitting edema in her bilateral lower extremities. Right lymphedema. SKIN: No rash. HEMATOLOGIC: No petechiae or purpura. NEUROLOGICAL: Nonfocal. PSYCHIATRIC: She is alert, oriented, and appropriate. PERTINENT LABS AND X-RAYS: Current WBC 6.5, hemoglobin 9.9, hematocrit 30.4, platelet count 304,000, 71% neutrophils, 20% lymphocytes. PT is 18.3, INR is 1.5. Sodium is 142, potassium 4.3, chloride 112, CO2 is 21, BUN is 18, creatinine 1.13, calcium is 8.1, bilirubin is 0.9, AST is 37, ALT is 20, alkaline phosphatase is 299. BNP is 90. Serum total protein is 5, albumin 2.3, globulin 2.7. CEA is 49. Lipase 240. Echo shows preserved EF of 50%. Radiology per HPI. ASSESSMENT: 1. Biliary obstruction, improved. 2. History of breast cancer. 3. Newly elevated CEA and CA 27.29. DISCUSSION: The patient's LFTs have improved. NG tube remains in place. Her pathology of her duodenal stricture and ampulla are negative. She has new elevation of CA27-29 and CEA. With the significant recent increase in tumor markers and physical complaints, there is concern that she does have a malignancy. Plan to continue close evaluation. She may need a PET scan in the outpatient setting. Dr. Herrera to follow. Thank you for the consult. Job ID: [id number] ROSALVA
[2018-11-15] MEDS: Lorazepam 2 MG/ML VIAL SLOW IVP PRN (02:21)
[2018-11-15 06:47] LABS: ALT (SGPT) 21 U/L (8-55); AST (SGOT) 35 U/L (5-34); Albumin 2.4 g/dL (3.4-4.8); Alkaline Phosphatase 381 U/L (40-150); Anion Gap 11 mmol/L (10-20); BUN (Urea Nitrogen) 17 mg/dL (9.8-20.1); Bilirubin, Total 0.8 mg/dL (0.2-1.2); Calc. Creatinine Clearance 58 mL/min (70-130); Calcium 8.7 mg/dL (7.8-10.44); Carbon Dioxide 24 mmol/L (23-31); Chloride 112 mmol/L (98-107); Estimated GFR-MDRD 61; Globulin 2.9 g/dL (2.4-3.5); Glucose 61 mg/dL (83-110); Lipase 115 U/L (8-78); Potassium 4.1 mmol/L (3.5-5.1); Protein, Total 5.3 g/dL (6.0-8.3); Sodium 143 mmol/L (136-145)
[2018-11-15] MEDS: Mometasone/Formoterol 120 PUFF INHALER INH SCH ×2 (07:24→18:26)
[2018-11-15] MEDS: cefTRIAXone\\ROCEPHIN 2 GM in Sodium Chloride 0.9% 100 ML IVPB SCH (10:14)
[2018-11-15] MEDS: Enoxaparin Sodium 40 MG/0.4 ML SYRINGE SC SCH (10:14)
[2018-11-15] MEDS: Pantoprazole 40 MG VIAL IVP SCH ×2 (10:14→21:27)
--- NOTE | 2018-11-15 11:08 | EKG ---
Test Reason : Blood Pressure : / mmHG Vent. Rate : 115 BPM Atrial Rate : 115 BPM P-R Int : 136 ms QRS Dur : 110 ms QT Int : 376 ms P-R-T Axes : 048 -58 103 degrees QTc Int : 520 ms Sinus tachycardia with Premature atrial complexes Incomplete right bundle branch block Left anterior fascicular block Left ventricular hypertrophy with repolarization abnormality Possible Anterior infarct , age undetermined Prolonged QT Abnormal ECG Confirmed by TEE HENDIRCKSON M.D. ([id number]), society editor ADARSH EVANS ([id number]) on 11/15/2018 11:08:24 AM Referred By: Confirmed By:TEE HENDRICKSON M.D.
--- NOTE | 2018-11-15 14:42 | PRG ---
DATE OF SERVICE: 11/15/2018 SUBJECTIVE: Ms. Yu has tolerated some ice chips overnight. She is going to try clear today. Biopsies from the ampullary region and the random duodenal biopsies came back just showing some mild blunting inflammation consistent with reactive change. No malignancy was seen. I reviewed her MRCP with Radiology and they could see no overt masses, but see a massively dilated pancreatic duct and bile duct. Her CT scan is limited by splay artifact from hardware in her back. OBJECTIVE: VITAL SIGNS: Pulse is 97, heart rate is down from 124 on admission to 92 with hydration. Blood pressure is 116/80. GENERAL: She has NG tube in place. LUNGS: Clear. HEART: Regular rate and rhythm. ABDOMEN: Soft. It is mildly tender. She has bowel sounds, but there is no rebound or guarding. LABORATORY DATA: Sodium 134, potassium 4.1, BUN and creatinine are 17 and 0.9 down from 19 and 1.18. AST is 35, ALT is 21, alkaline phosphatase is 381, albumin is 2.4, lipase 115, down from 1587 on the 16. CEA is 56. CA-19-9 is 58. CA 27-29 is 499. ASSESSMENT AND PLAN: 1. History of breast cancer. She has had one recurrence. Details per Oncology notes. 2. Now with 2 to 3 months of intermittent vomiting, anorexia, and weight loss with negative upper and lower endoscopies in September, now presents and admitted with signs of outlet obstruction with massive gastric dilatation and retained gastric contents. Endoscopy and attempted ERCP secondary to obstructed ducts noted on CT, showed obstruction of the duodenum at the second to third portion from extrinsic processes. Random biopsies were negative, which is unsurprising. My concern is this is malignancy and may relate to recurrent breast cancer. Unfortunately, our imaging studies and endoscopies have been nondiagnostic. I have talked with oncologist today on-call, Dr. Escobedo and she suggested if we get her any outpatient setting, may consider for referral to a surgical oncologist in [place] or [place] or [place]. At this point in time, I do not think that is going to happen as she has pretty high-grade obstruction and dehydrated. I talked with the family and the patient's daughter and the patient. They would like to proceed with transfer to a tertiary facility where pancreatobiliary surgeons and EUS are available. This seems reasonable. I have placed an order and asked them to transfer so to see if they can effectively transfer to [facility] where this is available. We will continue to follow with you. Job ID: [id number]
--- NOTE | 2018-11-15 15:49 | PDOC.PN ---
- Subjective Encounter Start Date: 11/15/18 Encounter Start Time: 11:35 Ms. Yu was seen today in follow-up of gastric outlet obstruction. She has the nausea and vomiting has improved. - Objective Resuscitation Status - Order Detail: 11/11/18 20:40 Resuscitation Status Routine Resuscitation Status: FULL: Full Resuscitation MAR Reviewed: Yes Vital Signs & Weight: Vital Signs (12 hours) Temp Pulse Resp BP Pulse Ox 11/15/18 08:15 97.5 F L 92 18 116/80 95 11/15/18 07:24 89 16 94 L Weight Admit Weight 145 lb 1.6 oz Weight 145 lb 1.6 oz I&O: 11/14/18 11/15/18 11/16/18 06:59 06:59 06:59 Intake Total 1500 Output Total 750 Balance 750 Result Diagrams: 11/14/18 04:30 11/15/18 06:05 Phys Exam - Physical Examination HEENT: PERRLA Respiratory: no wheezing, no rales, no rhonchi, clear to auscultation bilateral Cardiovascular: RRR slight 2/6 systolic murmur Gastrointestinal: soft, non-tender, no distention, positive bowel sounds Musculoskeletal: pulses present, edema present trace pedal edema + massive upper extremity edema right arm> Left Neurological: non-focal, normal sensation, moves all 4 limbs ( ) Dx/Plan (1) Breast cancer Status: Acute (2) Gastric outlet obstruction Code(s): K31.1 - ADULT HYPERTROPHIC PYLORIC STENOSIS Status: Acute Comment: See above (3) HTN (hypertension) Code(s): I10 - ESSENTIAL (PRIMARY) HYPERTENSION Status: Chronic Qualifiers: Hypertension type: essential hypertension Qualified Code(s): I10 - Essential (primary) hypertension Comment: Stable, continue Metoprolol (4) Acute on chronic renal failure Code(s): N17.9 - ACUTE KIDNEY FAILURE, UNSPECIFIED; N18.9 - CHRONIC KIDNEY DISEASE, UNSPECIFIED Status: Acute Qualifiers: Acute renal failure type: unspecified Comment: Improved with IVF's, avoid nephrotoxic meds and limit contrast - Plan * Gastric Outlet Obstruction- discussed with Dr. Cooley- ? etiology due to inability to complete the ERCP, he is recommending transfer to a tertiary center - [facility] for possible endoscopic ultrasound * HTN- blood pressure is controlled * Breast cancer-? in remission. * Acute on chronic kidney injury- stable
--- NOTE | 2018-11-15 20:38 | PDOC.EVN ---
Event Note - Event Note Event Note: called by RN for pt being accepted at [facility] in [facility]. Discussed with Dr. Cooley who states he has spoke with doctors there - reviewed meds with him and no indication to continue rocephin as he doubts infection. Meds reconcilled to continue all that pt is on here except rocephin. discharge order placed. RN reports all necessary paperwork is completed for transfer.
[2018-11-15] MEDS ORDERED: Latanoprost 0.005% Ophth Soln 2.5 ml Bottle EA EYE SCH (21:00)
[2018-11-15] MEDS ORDERED: Fluticasone Propionate Nasal Spray 16 gm Bottle NASAL SCH (21:00)
[2018-11-15] MEDS: rOPINIRole HCl 0.5 MG TAB PO SCH (21:25)
[2018-11-15] MEDS ORDERED: Loperamide HCl 2 MG CAP PO SCH (21:45)
[2018-11-15 23:18] VITALS: BP 116/66; TEMP 97.9
--- NOTE | 2018-11-16 19:24 | DIS ---
DATE OF ADMISSION: 11/12/2018 DATE OF DISCHARGE: 11/15/2018 PRIMARY CARE PHYSICIAN: Dr. Jerry Pruitt. DISCHARGE DISPOSITION: [facility] in [place]. DISCHARGE MEDICATIONS: 1. Requip 0.5 mg at bedtime. 2. Protonix 40 mg IV q.12. 3. Zofran 4 mg IV q.6. 4. Toprol XL 25 mg daily. 5. Dulera 120 mcg 2 puffs twice a day. 6. Lidocaine viscous 2% swish and swallow twice a day. 7. Latanoprost one drop in each eye. 8. Fluticasone 16 g nasally daily. 9. Lovenox 40 mg subcu daily. PROCEDURES DONE DURING ADMISSION: The patient had a CT scan of the abdomen and pelvis, showing evidence for gastric outlet obstruction worse than a prior CT. There was evidence of obstruction of the entire biliary tree, which was new since the prior CT scan. There is interval increase in volume with a moderate size right pleural effusion and there was some evidence of anasarca. The patient had an abdominal ultrasound and it showed a distended gallbladder filled with sludge. The common bile duct was normal; however, there was nonspecific intrahepatic biliary dilatation. The patient had an abdominal MRI showing severe intrahepatic and extrahepatic biliary dilatation without obvious filling defect or pancreatic head mass. There is evidence of a right pleural effusion. The patient had an ERCP attempt; however, the ERCP was unsuccessful as there was inability to advance the scope past the ampulla secondary to compression of the duodenum externally in the 2nd and 3rd portions. There was evidence of retained gastric contents, which was suctioned. There was enteroscopy with biopsy of a prominent appearing ampulla. There was no evidence of any clear tumor; however, biopsies were taken. The biopsies from the ampulla showed mild villous blunting and inflammatory changes and some mild peptic duodenitis. The patient also had an echocardiogram in which the ejection fraction was estimated at 50% to 55%. There was some impaired relaxation compatible with diastolic dysfunction and [id number] tricuspid regurgitation. CODE STATUS: Full code. ALLERGIES: IODINE AND SULFA. HOSPITAL COURSE: Ms. Yu is a pleasant 73-year-old female, who presented to the emergency room after having nausea and vomiting as well as abdominal pain. She has been having difficulty with eating and keeping food down for several months, which had gotten progressively worse. She was admitted to the hospital and an abdominal ultrasound was done as well as a CT of the abdomen. The abdomen showed a distended gallbladder with sludge as well as dilatation of her intrahepatic and biliary ducts. Similar findings were seen on CT with the addition of evidence of a gastric outlet obstruction as well as obstruction of the entire biliary tree. GI was consulted. She underwent placement of an NG tube to help relieve the symptoms of the obstruction. An abdominal MRI was obtained to try to better delineate the biliary anatomy. An ERCP was attempted but was not successful due to some extrinsic compression of the duodenum and the inability to pass the scope past the ampulla. Biopsies were taken, which were essentially nonrevealing. There was concern for possible extrinsic mass and need for additional imaging and workup, which was not available at our facility and for this reason, she was transferred to the [facility] in [place]. Job ID: [id number]
--- NOTE | 2018-11-17 07:57 | PRG ---
DATE OF SERVICE: 11/14/2018 SUBJECTIVE: Ms. Yu is sitting comfortably in bed. She has swishing of some viscous lidocaine for NG tube that is in place. She states the tube has not been draining. I talked with her nurse. There has been no emptying of the tube, although at 7:00 yesterday morning, the output was recorded at 1300 mL after her ERCP, it has only recorded 300 mL of output. The patient is not having bowel movements. She does not feel nauseated. She is taking copious amounts of ice chips. OBJECTIVE: VITAL SIGNS: Temperature is 97, pulse 93, blood pressure is 119/79. LUNGS: Clear. HEART: Regular rate and rhythm without clicks, rubs, or murmurs. ABDOMEN: Soft, nontender. LABORATORY DATA: White count 6.5, hemoglobin is 9.9, platelet count 304. Sodium 143, potassium 4.3, BUN and creatinine are 18 and 1.13, glucose 137, AST is 37, ALT is 20, alkaline phosphatase is 299, protein is 5, albumin is 2.3. Lipase is down to 240 from 1586 yesterday. CEA was 56.89 today, one month ago it was 49.7. CA 499.2 on 10/15/2018. CA-125 is pending. ASSESSMENT: This is a 73-year-old female, who has had anorexia, weight loss for the past several months. She had upper and lower endoscopies, which were normal sometime in September at our office, but now has progressed to the point, presenting with what appears to be almost a total gastric outlet obstruction, although it seems that some fluids are getting through. With this, she had elevated liver enzymes and elevated amylase and lipase and obstructive pattern. Imaging showed no overt tumors or masses. MRI was reviewed with Radiology, showed no overt masses in the head of the pancreas, just a dilated duct that goes down to the ileum. The EGD however shows almost a very high-grade gastric outlet obstruction in the region of the 2nd and 3rd parts of the duodenum. My concern is this would be related to malignancy, especially in light of her history of breast cancer with recurrence in the past and elevated tumor markers. We will ask Oncology to re-evaluate her. We are going to clamp her NG tube and see if she can tolerate liquids, but I think in that way she will get meaningful nutrition down. If the goal is going to be further treatment, she would have to be transferred to a tertiary center where they could evaluate options on relieving her proximal duodenal obstruction. Job ID: [id number]
== END 2018-11-15 22:35 | disposition short-term general hospital (02) | DRG 380 ==
LOC: ERS 15:51 → 2SW 21:01 → OBSVTOIN 11-12 07:49 → 2NO 11-12 09:02
PROVIDERS: ADMIT Hospitalist; ATTEND Hospitalist
PROC: 0FJB8ZZ Inspection of Hepatobiliary Duct, Via Natural or Artificial Opening Endoscopic (ICD-10-PCS; principal; 2018-11-12)
PROC: 0DB98ZX Excision of Duodenum, Via Natural or Artificial Opening Endoscopic, Diagnostic (ICD-10-PCS; 2018-11-12)
DX: K31.1 Adult hypertrophic pyloric stenosis (principal); K85.90 Acute pancreatitis without necrosis or infection, unspecified; K83.1 Obstruction of bile duct; N17.9 Acute kidney failure, unspecified; I47.1 Supraventricular tachycardia; E87.1 Hypo-osmolality and hyponatremia; I13.0 Hypertensive heart and chronic kidney disease with heart failure and stage 1 through stage 4 chronic kidney disease, or unspecified chronic kidney disease; K21.9 Gastro-esophageal reflux disease without esophagitis; J45.909 Unspecified asthma, uncomplicated; I50.9 Heart failure, unspecified; F32.9 Major depressive disorder, single episode, unspecified; Z85.3 Personal history of malignant neoplasm of breast; E87.6 Hypokalemia; N18.9 Chronic kidney disease, unspecified
CPT/HCPCS: 36415; 71045; 74176; 74183; 74330; 76000; 76705; 80053; 81003; 81015; 82150; 82378; 83690; 83880; 84100; 85025; 85610; 86301; 88305; 93005; 93010; 93306; 96361; 96374; A9577; C9113; J0696; J1100; J1650; J1956; J2001; J2060; J2270; J2405; J2543; J2704; J3010; J3475; J3490; Q9961